=== PATIENT | male | born 1945 | race Caucasian/White ===

== ENCOUNTER → 2016-11-14 | Outpatient (CLI) | payer MEDICARE ==
--- NOTE | 2016-11-14 10:16 | XR ---
EXAMINATION TYPE: XR cervical spine comp DATE OF EXAM: 11/14/2016 9:54 AM TECHNIQUE: Frontal, lateral, oblique, swimmers, and open mouth view of the cervical spine are obtaine d. HISTORY: M54.2 cervicalgia per order. History of neck surgery 20 years ago with neck pain COMPARISON: None FINDINGS: The cervical spine is visualized from C1 thru the mid C7 level, it there is exaggerated cu rvature in the upper cervical spine. No acute fracture is seen. Prevertebral soft tissues is prominen t at C6 level measuring 2.3 cm. The C1-C2 articulation is within normal limits on the open mouth vie w. There is suboptimal evaluation of C7-T1 level despite attempted swimmer's view. There is anterior fus ion plate running from superior C4-C7 vertebral body level. There is ossific fusion at these levels i dentified. There is slight anterior distraction or bending of the plate. The superior portion of plat e and dense along the anterior inferior C3 vertebra with spurring and sclerosis. Moderate to severe d isc space narrowing anteriorly at this C3-C4 disc space level is present. Mid screw appears to be wit hin ossified C5-C6 disc space. There are uncovertebral facet degenerative changes left C2-C3 and righ t C3-C4 level. The oblique images are within normal limits. The overlying soft tissue is unremarkable . IMPRESSION: As above, ossific fusion C4-C7 levels with exaggerated cervical curvature centered at C3- C4 disc space level. There is suspected mass effect on the anterior fusion plate which has abnormal a nterior bowing and is indenting into the anterior inferior C3 vertebra. Other findings as noted above . Correlation with old outside studies advised to further assess.
== END | disposition home or self-care (01) ==
LOC: RADXRMAIN 09:05
PROVIDERS: ATTEND Internal Medicine Geriatric Medicine
DX: M43.8X2 Other specified deforming dorsopathies, cervical region (principal); M43.22 Fusion of spine, cervical region
CPT/HCPCS: 72050

== ENCOUNTER → 2016-11-23 | Outpatient (CLI) | payer MEDICARE ==
[2016-11-23 07:15] LABS: Blood Urea Nitrogen 27 mg/dL (9-20); Non-African American GFR(MDRD) >60 (>60 ml/min/1.73 sqM)
--- NOTE | 2016-11-23 08:13 | MR ---
EXAMINATION TYPE: MR cervical spine wo/w con DATE OF EXAM ORDERED: 11/23/2016 7:41 AM HISTORY: M54.2 cervicalgia. TECHNOLOGIST HISTORY AT TIME OF EXAM: cervicalgia IV CONTRAST: 20 of MultiHance COMPARISON: None. TECHNIQUE: Multiplanar, multiecho imaging of the cervical spine was obtained with and without the in travenous administration of 20 of MultiHance on a 1.5 fern magnet. FINDINGS: Prevertebral soft tissues have a normal appearance. There has been an extensive ACDF and corpectomy with graft placement extending from C4 through C7. Th ere is moderate geometric distortion through this region. There is a reversal of the normal cervical lordosis at the C3 vertebral body is positioned slightly anterior aspect of the inferior endplate is impinging upon the superior aspect of the ACDF and this is eroding the inferior endplate. This hypert rophic spondylosis at this level. There is a normal craniocervical junction. Cord signal is normal. At C2-C3, there is a diffuse disc displacement. There is bilateral intervertebral foraminal narrowing , worse on the left than the right. There is facet arthropathy. The uncovertebral joints are unremark able. At C3-C4, there is disc space loss. There is bilateral intervertebral foraminal narrowing. There is a broad-based disc protrusion impinging upon the thecal sac with cord contact without compression. The re is mild facet arthropathy. The uncovertebral joints are secured. At C4-C5, there is mild, bilateral intervertebral foraminal narrowing. There is no significant compre ssive discopathy. There is facet arthropathy. The uncovertebral joints are obscured. At C5-C6, there is left-sided intervertebral foraminal narrowing. There is no significant compressive discopathy. There is mild facet arthropathy. The uncovertebral joints are obscured. At C6-C7, the intervertebral foramina are reasonably well-maintained. There is no significant herberth sive discopathy. The facets are unremarkable. The uncovertebral joints are obscured. At C7-T1, there is mild, bilateral intervertebral foraminal narrowing. There is a diffuse disc displa cement. There is mild facet arthropathy. The uncovertebral joints show mild degenerative change. IMPRESSION: 1. EXTENSIVE POSTSURGICAL CHANGE. 2. BROAD-BASED DISC PROTRUSION, C3-4 DEFORMING THE THECAL SAC WITH CORD CONTACT AND COMPRESSION. 3. MULTILEVEL INTERVERTEBRAL FORAMINAL NARROWING. 4. THE SUPERIOR PLATE OF THE ACDF IS ERODING INTO THE INFERIOR ENDPLATE OF C3.
== END | disposition home or self-care (01) ==
LOC: RADMRIMAIN 06:17
PROVIDERS: ATTEND Internal Medicine Geriatric Medicine
DX: M99.71 Connective tissue and disc stenosis of intervertebral foramina of cervical region (principal); M50.20 Other cervical disc displacement, unspecified cervical region; Z98.890 Other specified postprocedural states
CPT/HCPCS: 82565; 84520; 72156; A9577

== ENCOUNTER → 2018-02-25 | Day surgery (SDC) | payer MEDICARE ==
[2018-02-21 09:18] VITALS: BMI 28.4
[~2018-02-25] MED LIST: LACTATED RINGERS 1,000 ML IV SCH; PROPOFOL 10 MG/ML 20 ML VIAL IV ONE; SODIUM CHLORIDE 0.9% 1,000 ML IV SCH
[2018-02-25 06:23] VITALS: TEMP 98
[2018-02-25 07:44] VITALS: RESP 16
--- NOTE | 2018-02-25 07:59 | CE ---
CARDIAC ELECTROPHYSIOLOGY REPORT DATE OF SERVICE: 02/25/2018 PROCEDURE: Electrical cardioversion. INDICATION: Persistent atrial fibrillation, unresponsive to pharmacological measures. PROCEDURE NOTE: Under the influence of ultra short-acting intravenous anesthetic, with the attendance of the anesthesiologist, an initial shock of 200 joules was delivered with anterior and posterior patches in a synchronized fashion. Patient did not convert to sinus rhythm, remained in atrial fibrillation. A second shock was then delivered at 250 joules and this was also unsuccessful. Patient remained in atrial fibrillation, hemodynamically stable and neurologically intact. This was a unsuccessful electrical cardioversion. We will pursue rate control and anticoagulation. MMODL / IJN: [id number] /
[2018-02-25 09:09] VITALS: BP 135/81
[2018-02-25 09:29] VITALS: PULSE 56
== END | disposition home or self-care (01) ==
LOC: CATHCVL 05:48
PROVIDERS: ATTEND Internal Medicine Interventional Cardiology
DX: I48.1 Persistent atrial fibrillation (principal); E78.5 Hyperlipidemia, unspecified; I10 Essential (primary) hypertension; M10.9 Gout, unspecified; Z86.73 Personal history of transient ischemic attack (TIA), and cerebral infarction without residual deficits; E78.00 Pure hypercholesterolemia, unspecified; Z87.891 Personal history of nicotine dependence; Z79.82 Long term (current) use of aspirin; Z79.01 Long term (current) use of anticoagulants; Z79.899 Other long term (current) drug therapy
CPT/HCPCS: 92960; 84132; J2704

== ENCOUNTER 2018-04-04 08:45 | Inpatient (IN) | payer MEDICARE ==
[2018-04-04] MEDS ORDERED: SODIUM CHLORIDE 0.9% 1,000 ML IV ONE (09:42)
[2018-04-04] MEDS ORDERED: ALPRAZolam 0.25 MG TAB PO PRN (09:56)
[2018-04-04] MEDS ORDERED: ATORVASTATIN 80 MG TAB PO STA (09:56)
[2018-04-04] MEDS ORDERED: ALPRAZolam 0.5 MG TAB PO PRN (09:56)
[2018-04-04] MEDS ORDERED: ASPIRIN 325 MG TAB PO STA (09:56)
[2018-04-04] MEDS ORDERED: SODIUM CHLORIDE 0.9% 1,000 ML in EMPTY BAG 1 BAG IV ONE (09:56)
[2018-04-04] MEDS ORDERED: NITROGLYCERIN SL TABS 0.4 MG TAB SUBLINGUAL PRN ×2 (09:56→12:21)
[2018-04-04] MEDS ORDERED: 0.45% NACL 1 500ML.BAG with HEPARIN SOD,PORK IN 0.45% NACL 25,000 UNIT IV SCH (10:00)
[2018-04-04] MEDS ORDERED: HEPARIN SOD,PORK IN 0.45% NACL 25,000 UNIT in 0.45% NACL 1 500ML.BAG IV SCH (10:15)
[2018-04-04] MEDS ORDERED: LIDOCAINE 2% SYG (PF) 100 MG/5 ML MISCELLANE ONE (11:43)
[2018-04-04] MEDS ORDERED: VERAPAMIL SYRINGE (5 MG/10 ML) INTRAARTER ONE (11:44)
[2018-04-04] MEDS ORDERED: BIVALIRUDIN BOLUS 250 MG/50 ML IV ONE (11:47)
[2018-04-04] MEDS ORDERED: diphenhydrAMINE 50 MG/ML 1 ML VIAL IVP ONE (11:48)
[2018-04-04] MEDS ORDERED: BIVALIRUDIN 250 MG in SODIUM CHLORIDE 0.9% 40 ML IV ONE (11:48)
[2018-04-04] MEDS ORDERED: MIDAZOLAM 2 MG/2 ML VIAL IV ONE (11:48)
[2018-04-04] MEDS ORDERED: NITROGLYCERIN 1000MCG/10ML SYRINGE INTRACORON ONE (12:07)
[2018-04-04] MEDS ORDERED: IOPAMIDOL-370 100ML BTL INJ ONE (12:07)
[2018-04-04] MEDS ORDERED: CLOPIDOGREL 75 MG TAB PO ONE (12:14)
[2018-04-04] MEDS ORDERED: RX INFO: IV CONTRAST WAS GIVEN 1 EACH MISC MISCELLANE PRN (12:21)
[2018-04-04] MEDS ORDERED: MAG HYDROX/AL HYDROX/SIMETH 30 ML CUP PO PRN (12:21)
[2018-04-04] MEDS ORDERED: ATROPINE SULFATE 0.1 MG/ML 10ML SYRINGE IV PRN (12:21)
[2018-04-04] MEDS ORDERED: ZOLPIDEM 5 MG TAB PO PRN (12:21)
--- NOTE | 2018-04-04 14:19 | PTCA ---
PERCUTANEOUSTRANS CORORONARY ANGIOGRAPHY DATE OF SERVICE: 04/04/2018. PROCEDURE: PTCA and stenting of distal dominant right coronary artery with a drug-eluting stent. PERFORMED BY: Dr. Mirza Lange. Moderate conscious sedation time was 30 minutes. CLINICAL INFORMATION: Mr. Samm Johnson is a 72-year-old gentleman with a known history of recent onset persistent atrial fibrillation, unresponsive to elective cardioversion with ejection fraction in the 45% range, who was being considered for an ablation, but prior to that he was advised coronary angiography. Risks, benefits, options and rationale were explained. Coronary angiography performed earlier today revealed that there was 80% lesion in the distal RCA which was a very dominant vessel without significant disease in the left system. He was transferred from [facility] with a sheath in the right radial artery and brought in for the procedure. PROCEDURE NOTE: The existing 6-Romansh introducer in the right radial artery was used to perform the procedure. I used an ERT 3.5 catheter to cannulate the right coronary artery. Initially, I used a BMW wire, but switched over to a Whisper wire. With this I was able to get the wire all the way distally. Without predilatation, a 2.75 caliber, 12 mm long Xience stent was deployed at 14 atmospheres. Patient did not have any chest pain or EKG changes. Excellent angiographic result was achieved. The sheath was then taken out and a TR band applied as per protocol. Saturation of the fingers of the right hand was about 94%. Patient was given Angiomax bolus and infusion as per protocol and also received 600 mg of Plavix. He will be going home on aspirin and Plavix but not Eliquis and this will be resumed a week later and probably AV is a combination of Xarelto and Plavix for this patient. Results were discussed with the patient and daughter and I expect he will be discharged tomorrow if he remains stable. MMODL / IJN: [id number] /
[2018-04-04 14:21] VITALS: BMI 28.4
--- NOTE | 2018-04-04 14:22 | LTR ---
DATE OF SERVICE: 04/04/2018 RE: Samm Johnson Dear Dr. Sanders; Please find enclosed my detailed PTCA report for the records. This gentleman was transferred from [facility] for PCI, which was performed from the same right radial approach with excellent angiographic result. He should be on a dual antiplatelet therapy without interruption for one year. I may, however, change this to a combination of Xarelto 15 mg and Plavix 75 mg daily, but I will send you a note regarding this after I see him in the office. Thank you for your referral and please call for questions. With kindest regards. Sincerely yours, MD ETHAN LunaL / NICKIN: [id number] /
[2018-04-04] MEDS: SODIUM CHLORIDE 0.9% 1,000 ML IV SCH (16:05)
[2018-04-04] MEDS ORDERED: ATORVASTATIN 80 MG TAB PO SCH (21:00)
[2018-04-04] MEDS: BACLOFEN 10 MG TAB PO SCH (23:56)
[2018-04-05 05:53] LABS: Basophils % (A) 0 %; Eosinophils # (A) 0.1 k/uL (0-0.7); Eosinophils % (A) 2 %; HCT 41.6 % (39.0-53.0); HGB 13.7 gm/dL (13.0-17.5); Lymphocytes # (A) 1.5 k/uL (1.0-4.8); Lymphocytes % (A) 20 %; MCH 32.5 pg (25.0-35.0); MCV 98.6 fL (80.0-100.0); Mean Platelet Volume 7.9; Monocytes # (A) 0.5 k/uL (0-1.0); Monocytes % (A) 7 %; Neutrophils # (A) 5.1 k/uL (1.3-7.7); Neutrophils % (A) 70 %; Platelet Count 166 k/uL (150-450); RBC 4.21 m/uL (4.30-5.90); WBC 7.4 k/uL (3.8-10.6)
[2018-04-05 06:04] LABS: Calcium 9.1 mg/dL (8.4-10.2); Potassium 4.6 mmol/L (3.5-5.1)
[2018-04-05] MEDS: SODIUM CHLORIDE 0.9% 1,000 ML IV SCH (06:42)
[2018-04-05] MEDS: BACLOFEN 10 MG TAB PO SCH (08:02)
[2018-04-05 08:12] VITALS: BP 134/79; PULSE 76; RESP 16; TEMP 98.1
[2018-04-05] MEDS ORDERED: LOSARTAN 50 MG TAB PO SCH (09:00)
[2018-04-05] MEDS ORDERED: SODIUM BICARBONATE TAB 650 MG TAB PO SCH (09:00)
[2018-04-05] MEDS ORDERED: ALLOPURINOL 300 MG TAB PO SCH (09:00)
[2018-04-05] MEDS ORDERED: METOPROLOL TARTRATE 25 MG TAB PO SCH (09:00)
[2018-04-05] MEDS ORDERED: TRIAMTERENE-HCTZ 37.5-25MG 1 EACH CAP PO SCH (09:00)
[2018-04-05] MEDS ORDERED: CLOPIDOGREL 75 MG TAB PO SCH (09:00)
[2018-04-05] MEDS ORDERED: LACTOBACILLUS ACIDOPH & BULGAR 1 EACH PACKET PO SCH (09:00)
[2018-04-05] MEDS ORDERED: ASPIRIN 81 MG PO SCH (09:00)
--- NOTE | 2018-04-05 11:43 | PN ---
PROGRESS NOTE Mr. Johnson 72-year-old male who presented to [facility], underwent cardiac catheterization by Dr. Juan A Lange and was found to have significant stenosis involving the distal right coronary artery and underwent stenting of that vessel. He is doing well this morning. He is denying any symptom of chest pain. He denies any dizziness, palpitation. He denies any nausea. He continues to be at this time on aspirin once a day, Lipitor 80 mg daily, Plavix 75 mg daily, losartan 100 mg daily, metoprolol 25 mg daily, and Dyazide. PHYSICAL EXAMINATION: Blood pressure 134/70 with a heart rate in the 70s. LUNGS: Clear. HEART: Regular rate and rhythm. S1, S2. No S3. No rub. ABDOMEN: Soft, nontender. EXTREMITIES: No edema, right radial pulse intact. LAB DATA: Revealed BUN and creatinine 23 and 1.0. IMPRESSION: 1. Status post stenting of the right coronary artery. 2. Hypertension. 3. Hyperlipidemia. RECOMMENDATION: Patient should be able to be discharged home today and followed with Dr. Juan A Lange as an outpatient. MMODL / IJN: [id number] /
== END 2018-04-05 12:55 | disposition home or self-care (01) | DRG 247 ==
LOC: 6SEL 08:55
PROVIDERS: ADMIT Internal Medicine Interventional Cardiology; ATTEND Internal Medicine Interventional Cardiology
PROC: 027034Z Dilation of Coronary Artery, One Artery with Drug-eluting Intraluminal Device, Percutaneous Approach (ICD-10-PCS; principal; 2018-04-04 11:15)
DX: I25.10 Atherosclerotic heart disease of native coronary artery without angina pectoris (principal); I48.1 Persistent atrial fibrillation; I10 Essential (primary) hypertension; E78.5 Hyperlipidemia, unspecified; Z79.899 Other long term (current) drug therapy; Z87.891 Personal history of nicotine dependence; I42.9 Cardiomyopathy, unspecified; I49.5 Sick sinus syndrome
CPT/HCPCS: 80048; 85025

== ENCOUNTER → 2019-01-31 | Outpatient (CLI) | payer MEDICARE ==
--- NOTE | 2019-01-31 07:19 | XR ---
EXAMINATION TYPE: XR lumbar spine 2 or 3V DATE OF EXAM: 01/31/2019 CLINICAL HISTORY: Chronic low back pain. TECHNIQUE: Frontal and lateral images of the lumbar spine are obtained. COMPARISON: Lumbar spine x-ray from 2011. FINDINGS: There are 5 lumbar type vertebral bodies redemonstrated. The lumbar spine redemonstrates slight levoconvex scoliotic curvature centered at L3 level without evidence of acute fracture or disl ocation. There is some loss of normal lumbar lordosis on lateral images redemonstrated. Vertebral bod y heights remain within normal limits. There is stable mild disc space narrowing L4-L5 and L5-S1 leve ls. There is prominent facet arthropathy in the lower lumbar spine redemonstrated. There is mild disc space narrowing L2-L3 level redemonstrated with now moderate anterior spurring. There is additional prominent spur anteriorly L1-L2 level now identified. The overlying soft tissue appears unremarkable. IMPRESSION: As above.
== END | disposition home or self-care (01) ==
LOC: RADXRMAIN 06:13
PROVIDERS: ATTEND Internal Medicine Geriatric Medicine
DX: M48.07 Spinal stenosis, lumbosacral region (principal); M46.86 Other specified inflammatory spondylopathies, lumbar region; M46.06 Spinal enthesopathy, lumbar region; M40.56 Lordosis, unspecified, lumbar region
CPT/HCPCS: 72100

== ENCOUNTER 2019-07-08 14:12 | Observation (INO) | payer MEDICARE ==
[2019-07-08] MEDS ORDERED: NITROGLYCERIN OINT 1 INCH/GM PACKET TOPICAL STA (14:36)
[2019-07-08] MEDS ORDERED: ASPIRIN 81 MG PO STA (14:36)
--- NOTE | 2019-07-08 14:39 | ED ---
General Adult HPI - General Chief complaint: Chest Pain Stated complaint: Chest pain Time Seen by Provider: 07/08/19 14:15 Source: patient, RN notes reviewed Mode of arrival: ambulatory Limitations: no limitations - History of Present Illness Initial comments: This is a 73-year-old male who presents emergency Department with a past medical history significant for atrial fibrillation and high blood pressure and high cholesterol. Patient states the last 2 days had chest pain and left-sided chest radiates to his jaw back and arm. Patient states he is also noted with exertion is a little bit more short of breath than normal. Patient states he is on eliquis. Patient states currently while lying here he still has chest pain and pain rating to his jaw. Patient denies any diaphoretic episodes. Patient states he is a little bit nauseated. Patient denies any abdominal pain patient denies any vomiting or diarrhea. Patient denies any headache patient denies numbness weakness. Patient denies any lightheadedness or dizziness. Patient denies any recent fever chills or cough - Related Data Home Medications Medication Instructions Recorded Confirmed Acetaminophen [Tylenol Arthritis] 2 tab PO BID 02/21/18 04/04/18 Allopurinol [Zyloprim] 300 mg PO DAILY 02/21/18 04/04/18 Apixaban [Eliquis] 5 mg PO BID 02/21/18 04/04/18 Baclofen [Lioresal] 10 mg PO BID 02/21/18 04/04/18 L.acidoph,Paracasei, B.lactis 1 cap PO DAILY 02/21/18 04/04/18 [Probiotic] Losartan Potassium [Cozaar] 100 mg PO DAILY 02/21/18 04/04/18 Metoprolol Tartrate 25 mg PO DAILY 02/21/18 04/04/18 Sodium Bicarbonate 650 mg PO DAILY 02/21/18 04/04/18 Triamterene-Hctz 37.5-25Mg 1 cap PO DAILY 02/21/18 04/04/18 [Dyazide 37.5-25 Capsule] Previous Rx's Medication Instructions Recorded Aspirin 81 mg PO DAILY #30 chew 04/05/18 Atorvastatin [Lipitor] 80 mg PO HS #30 tab 04/05/18 Clopidogrel [Plavix] 75 mg PO DAILY #30 tab 04/05/18 Nitroglycerin Sl Tabs [Nitrostat] 0.4 mg SUBLINGUAL Q5M PRN #25 tab 04/05/18 Allergies Allergy/AdvReac Type Severity Reaction Status Date / Time No Known Allergies Allergy Verified 07/08/19 14:19 Review of Systems ROS Statement: Those systems with pertinent positive or pertinent negative responses have been documented in the HPI. ROS Other: All systems not noted in ROS Statement are negative. Past Medical History Past Medical History: Atrial Fibrillation, CVA/TIA, Hyperlipidemia, Hypertension, Osteoarthritis (OA) Additional Past Medical History / Comment(s): 04-04-18 c/p. gout, past tia History of Any Multi-Drug Resistant Organisms: None Reported Past Surgical History: Heart Catheterization, Heart Catheterization With Stent Additional Past Surgical History / Comment(s): 04-04-18 heart cath w/ stent to rca,cervical fusion, rt carotid surgery, cardioversion 02-25-18, upper front dental implants Past Anesthesia/Blood Transfusion Reactions: No Reported Reaction Additional Past Anesthesia/Blood Transfusion Reaction / Comment(s): clausterphobia. never had a blood transfusion Past Psychological History: No Psychological Hx Reported Smoking Status: Former smoker Past Alcohol Use History: Occasional Past Drug Use History: None Reported - Past Family History Mother Family Medical History: Cancer Additional Family Medical History / Comment(s): breast with metastasis Brother(s) Family Medical History: Cancer General Exam - General Exam Comments Initial Comments: GENERAL: Patient is well-developed and well-nourished. Patient is nontoxic and well- hydrated and is in mild distress. ENT: Neck is soft and supple. No significant lymphadenopathy is noted. Oropharynx is clear. Moist mucous membranes. Neck has full range of motion without eliciting any pain. EYES: The sclera were anicteric and conjunctiva were pink and moist. Extraocular movements were intact and pupils were equal round and reactive to light. Eyelids were unremarkable. PULMONARY: Unlabored respirations. Good breath sounds bilaterally. No audible rales rhonchi or wheezing was noted. CARDIOVASCULAR: There is a regular rate and rhythm without any murmurs gallops or rubs. ABDOMEN: Soft and nontender with normal bowel sounds. No palpable organomegaly was noted. There is no palpable pulsatile mass. SKIN: Skin is clear with no lesions or rashes and otherwise unremarkable. NEUROLOGIC: Patient is alert and oriented x3. Cranial nerves II through XII are grossly intact. Motor and sensory are also intact. Normal speech, volume and content. Symmetrical smile. MUSCULOSKELETAL: Normal extremities with adequate strength and full range of motion. No lower extremity swelling or edema. No calf tenderness. LYMPHATICS: No significant lymphadenopathy is noted PSYCHIATRIC: Normal psychiatric evaluation. Limitations: no limitations Course Vital Signs 07/08/19 14:15 Temperature 97.9 F Pulse Rate 69 Respiratory 20 Rate Blood Pressure 163/88 O2 Sat by Pulse 97 Oximetry Medical Decision Making - Medical Decision Making EKG shows atrial flutter fibrillation a 73 bpm QRS 142 QT intervals 410 QTC is 460. Patient has a left bundle branch block. This was seen on old EKG. Patient's chest x-ray showed no acute abnormalities. Patient was diagnosed unstable angina/started the patient heparin. I spoke with his primary medical care doctor admitted the patient wrote a minute or so and consult to cardiology. I continued heparin Nitropaste on the floor. - Lab Data Result diagrams: 07/08/19 15:37 07/08/19 15:37 Lab Results 07/08/19 07/08/19 07/08/19 Range/Units 15:37 15:37 15:37 WBC 6.5 (3.8-10.6) k/uL RBC 4.03 L (4.30-5.90) m/uL Hgb 13.6 (13.0-17.5) gm/dL Hct 39.8 (39.0-53.0) % MCV 98.9 (80.0-100.0) fL MCH 33.7 (25.0-35.0) pg MCHC 34.1 (31.0-37.0) g/dL RDW 13.0 (11.5-15.5) % Plt Count 175 (150-450) k/uL Neutrophils % 62 % Lymphocytes % 28 % Monocytes % 6 % Eosinophils % 1 % Basophils % 1 % Neutrophils # 4.1 (1.3-7.7) k/uL Lymphocytes # 1.8 (1.0-4.8) k/uL Monocytes # 0.4 (0-1.0) k/uL Eosinophils # 0.1 (0-0.7) k/uL Basophils # 0.0 (0-0.2) k/uL PT 11.2 (9.0-12.0) sec INR 1.1 (<1.2) APTT 26.4 (22.0-30.0) sec Sodium 140 (137-145) mmol/L Potassium 4.1 (3.5-5.1) mmol/L Chloride 106 (98-107) mmol/L Carbon Dioxide 29 (22-30) mmol/L Anion Gap 5 mmol/L BUN 24 H (9-20) mg/dL Creatinine 0.95 (0.66-1.25) mg/dL Est GFR (CKD-EPI)AfAm >90 (>60 ml/min/1.73 sqM) Est GFR (CKD-EPI)NonAf 80 (>60 ml/min/1.73 sqM) Glucose 134 H (74-99) mg/dL Calcium 9.0 (8.4-10.2) mg/dL Magnesium 2.0 (1.6-2.3) mg/dL Total Bilirubin 1.0 (0.2-1.3) mg/dL AST 28 (17-59) U/L ALT 24 (21-72) U/L Alkaline Phosphatase 69 (38-126) U/L Troponin I (0.000-0.034) ng/mL Total Protein 6.8 (6.3-8.2) g/dL Albumin 4.0 (3.5-5.0) g/dL 07/08/19 Range/Units 15:37 WBC (3.8-10.6) k/uL RBC (4.30-5.90) m/uL Hgb (13.0-17.5) gm/dL Hct (39.0-53.0) % MCV (80.0-100.0) fL MCH (25.0-35.0) pg MCHC (31.0-37.0) g/dL RDW (11.5-15.5) % Plt Count (150-450) k/uL Neutrophils % % Lymphocytes % % Monocytes % % Eosinophils % % Basophils % % Neutrophils # (1.3-7.7) k/uL Lymphocytes # (1.0-4.8) k/uL Monocytes # (0-1.0) k/uL Eosinophils # (0-0.7) k/uL Basophils # (0-0.2) k/uL PT (9.0-12.0) sec INR (<1.2) APTT (22.0-30.0) sec Sodium (137-145) mmol/L Potassium (3.5-5.1) mmol/L Chloride (98-107) mmol/L Carbon Dioxide (22-30) mmol/L Anion Gap mmol/L BUN (9-20) mg/dL Creatinine (0.66-1.25) mg/dL Est GFR (CKD-EPI)AfAm (>60 ml/min/1.73 sqM) Est GFR (CKD-EPI)NonAf (>60 ml/min/1.73 sqM) Glucose (74-99) mg/dL Calcium (8.4-10.2) mg/dL Magnesium (1.6-2.3) mg/dL Total Bilirubin (0.2-1.3) mg/dL AST (17-59) U/L ALT (21-72) U/L Alkaline Phosphatase (38-126) U/L Troponin I <0.012 (0.000-0.034) ng/mL Total Protein (6.3-8.2) g/dL Albumin (3.5-5.0) g/dL Critical Care Time Critical Care Time: Yes Total Critical Care Time: 35 Disposition Clinical Impression: Unstable angina pectoris Disposition: ADMITTED IP TO THIS HOSP Referrals: Joe Sanders MD [Primary Care Provider] - 1-2 days Time of Disposition: 17:02
[2019-07-08 15:54] LABS: Basophils % (A) 1 %; Eosinophils # (A) 0.1 k/uL (0-0.7); Eosinophils % (A) 1 %; HCT 39.8 % (39.0-53.0); HGB 13.6 gm/dL (13.0-17.5); Lymphocytes # (A) 1.8 k/uL (1.0-4.8); Lymphocytes % (A) 28 %; MCH 33.7 pg (25.0-35.0); MCHC 34.1 g/dL (31.0-37.0); MCV 98.9 fL (80.0-100.0); Mean Platelet Volume 7.3; Monocytes # (A) 0.4 k/uL (0-1.0); Monocytes % (A) 6 %; Neutrophils # (A) 4.1 k/uL (1.3-7.7); Neutrophils % (A) 62 %; Platelet Count 175 k/uL (150-450); RBC 4.03 m/uL (4.30-5.90); WBC 6.5 k/uL (3.8-10.6)
--- NOTE | 2019-07-08 15:59 | XR ---
EXAMINATION TYPE: XR chest 2V DATE OF EXAM: 07/08/2019 COMPARISON: NONE HISTORY: History of hypertension with chest pain. TECHNIQUE: Frontal and lateral views of the chest are obtained. FINDINGS: Overlying EKG leads. There is no focal air space opacity, pleural effusion, or pneumothorax seen. The cardiac silhouette size is within normal limits. Fusion plate lower cervical spine noted. IMPRESSION: No acute cardiopulmonary process.
[2019-07-08 16:07] LABS: ALT 24 U/L (21-72); AST 28 U/L (17-59); African American GFR (CKD) >90 (>60 ml/min/1.73 sqM); Alkaline Phosphatase 69 U/L (38-126); Anion Gap 5 mmol/L; Blood Urea Nitrogen 24 mg/dL (9-20); Carbon Dioxide 29 mmol/L (22-30); Chloride 106 mmol/L (98-107); Glucose 134 mg/dL (74-99); Non-African American GFR(CKD) 80 (>60 ml/min/1.73 sqM); Potassium 4.1 mmol/L (3.5-5.1); Sodium 140 mmol/L (137-145); Total Protein 6.8 g/dL (6.3-8.2)
[2019-07-08 16:29] LABS: INR 1.1 (<1.2); Partial Thromboplastin Time 26.4 sec (22.0-30.0); Prothrombin Time 11.2 sec (9.0-12.0)
[2019-07-08] MEDS ORDERED: NITROGLYCERIN SL TABS 0.4 MG TAB SUBLINGUAL PRN (17:03)
[2019-07-08] MEDS ORDERED: HEPARIN SODIUM,PORCINE 5,000 UNIT/ML 1 ML VIAL IV ONE (17:06)
[2019-07-08] MEDS ORDERED: HEPARIN SOD,PORK IN 0.45% NACL 25,000 UNIT in 0.45% NACL 1 250ML.BAG IV SCH (17:15)
[2019-07-08 21:29] VITALS: RESP 18
[2019-07-08 21:41] VITALS: BMI 29.7
[2019-07-08] MEDS: NITROGLYCERIN OINT 1 INCH/GM PACKET TOPICAL SCH (21:59)
[2019-07-09] MEDS: NITROGLYCERIN OINT 1 INCH/GM PACKET TOPICAL SCH ×2 (00:24→03:25)
[2019-07-09] MEDS ORDERED: ACETAMINOPHEN TAB 325 MG TAB PO PRN (03:24)
[2019-07-09 04:19] LABS: Cholesterol 111 mg/dL (<200); HDL Cholesterol 38 mg/dL (40-60); LDL Cholesterol,Calculated 48 mg/dL (0-99); Triglycerides 123 mg/dL (<150)
[2019-07-09 07:38] VITALS: TEMP 97.5
[2019-07-09] MEDS ORDERED: ASPIRIN 325 MG TAB PO SCH (09:00)
[2019-07-09] MEDS ORDERED: METOPROLOL TARTRATE 25 MG TAB PO SCH (09:00)
[2019-07-09] MEDS ORDERED: ASPIRIN 81 MG PO SCH (09:00)
[2019-07-09] MEDS ORDERED: hydrALAZINE HCL 25 MG TAB PO SCH (09:00)
--- NOTE | 2019-07-09 10:18 | P.CRDCN ---
History of Present Illness History of present illness: This is a pleasant 73-year-old male past medical history significant for chronic persistent atrial fibrillation, nonischemic cardiomyopathy secondary to atrial fibrillation, coronary artery disease status post stent placement to the RCA, TIA, hypertension, dyslipidemia, cervical fusion and former nicotine dependence. He follows in the office with Dr. Lange. We have been asked to see him in consultation secondary to chest discomfort. He states he woke up Sunday morning with a sharp pain in the left precordial region that radiated to the left arm, left neck and left scapular region. His symptoms were persistent in nature not exacerbated by activity however did have periods of worsening associated with movement of his arm or torso. He is seen and examined resting comfortably in bed in no acute distress. He has no further chest discomfort however his left arm still feels achy. There is a reproducible discomfort in the left precordial region and palpation. He denies associated shortness of breath, dizziness, nausea, vomiting or diaphoresis. EKG reveals atrial fibrillation with left bundle branch block, left bundle branch block is chronic. Chest x-ray is negative for an acute cardiopulmonary process. Laboratory data reviewed, cardiac enzymes negative 3, WBC 6.5, hemoglobin 13.6, platelets 175, sodium 140, potassium 4.1, creatinine 0.95, LDL 48, HDL 38 and magnesium 2.0. Current daily cardiac medications include Eliquis 5 mg twice a day, atorvastatin 40 mg daily, Plavix 75 mg daily, losartan 100 mg daily and Lopressor 25 mg twice a day. He underwent cardiac catheterization in April 2018 revealing disease of the RCA s/p PCI. Most recent echocardiogram obtained in the office 05/2019 revealed impaired LV systolic function with ejection fraction 35-40% with global hypokinesia and mild mitral regurgitation. At the time of my exam: CONSTITUTIONAL: Denies fever. Denies chills. EYES: Denies blurred vision. Denies vision changes. Denies eye pain. EARS, NOSE, MOUTH & THROAT: Denies headache. Denies sore throat. Denies ear pain. CARDIOVASCULAR: Denies chest pain. Denies shortness of breath. Denies orthopnea. Denies PND. Denies palpitations. RESPIRATORY: Denies cough. GASTROINTESTINAL: Denies abdominal pain. Denies diarrhea. Denies constipation. Denies nausea. Denies vomiting. MUSCULOSKELETAL: Complains of discomfort on the left arm. INTEGUMENTARY: Denies pruitis. Denies rash. NEUROLOGIC: Denies numbness. Denies tingling. Denies weakness. PSYCHIATRIC: Denies anxiety. Denies depression. ENDOCRINE: Denies fatigue. Denies weight change. Denies polydipsia. Denies polyurina. GENITOURINARY: Denies burning, hematuria or urgency with micturation. HEMATOLOGIC: Denies history of anemia. Denies bleeding. Blood pressure 162/95 heart rate 51 afebrile maintaining oxygen saturation on room air GENERAL: This is a 73-year-old male in no apparent distress at the time of my examination. HEENT: Head is atraumatic, normocephalic. Pupils are equal, round. Sclerae anicteric. Conjunctivae are clear. Mucous membranes of the mouth are moist. Neck is supple. There is no jugular venous distention. No carotid bruit is heard. LUNGS: Clear to auscultation no wheezes, rales or rhonchi. Mild left precordial region chest wall tenderness is noted on palpation. No pain or discomfort with deep breathing. HEART: Regular rate and rhythm without murmurs, rubs or gallops. S1 and S2 heard. ABDOMEN: Soft, nontender. Bowel sounds are heard. No organomegaly noted. EXTREMITIES: No evidence of peripheral edema and no calf tenderness noted. VASCULAR: Radial and dorsalis pedis pulses palpated, no evidence of clubbing. NEUROLOGIC: Patient is awake, alert and oriented x3. ASSESSMENT Chest pain, atypical for angina. Musculoskeletal in nature. An acute coronary event has been ruled out. Chronic persistent atrial fibrillation on long-term anticoagulation resistant to cardioversion Coronary artery disease status post angioplasty to the RCA April 2018 Non-ischemic cardiomyopathy, EF 35-40% with global hypokinesia Chronic systolic heart failure, currently euvolemic Cervical fusion Hypertension History of TIA Peripheral vascular disease status post right carotid endarterectomy Left bundle branch block PLAN An acute coronary event has been ruled out. Pain is atypical for angina with musculoskeletal features. Likely secondary to musculoskeletal strain. Check an x-ray of the cervical spine. Initiate on hydralazine 25 mg twice a day for better blood pressure control. Resume Eliquis, Plavix, losartan, atorvastatin and Lopressor as previously ordered. Stable from a cardiac perspective. Follow up in the office with Dr. Lange in 2 weeks. Thank you kindly for this consultation. Nurse Practitioner note has been reviewed, I agree with a documented findings and plan of care. Patient was seen and examined. Past Medical History Past Medical History: Atrial Fibrillation, CVA/TIA, Hyperlipidemia, Hyper tension, Osteoarthritis (OA) Additional Past Medical History / Comment(s): 04-04-18 c/p. gout, past tia History of Any Multi-Drug Resistant Organisms: None Reported Past Surgical History: Heart Catheterization, Heart Catheterization With Stent Additional Past Surgical History / Comment(s): 04-04-18 heart cath w/ stent to rca,cervical fusion, rt carotid surgery, cardioversion 02-25-18, upper front den teodora implants Past Anesthesia/Blood Transfusion Reactions: No Reported Reaction Additional Past Anesthesia/Blood Transfusion Reaction / Comment(s): cla usterphobia. never had a blood transfusion Date of Last Stent Placement:: 2017 Smoking Status: Former smoker - Past Family History Mother Family Medical History: Cancer Additional Family Medical History / Comment(s): breast with metastasis Brother(s) Family Medical History: Cancer Medications and Allergies Home Medications Medication Instructions Recorded Confirmed Type Acetaminophen [Tylenol Arthritis] 1,300 mg PO BID@0700,1900 02/21/18 07/08/19 History Allopurinol [Zyloprim] 300 mg PO DAILY@0600 02/21/18 07/08/19 History Apixaban [Eliquis] 5 mg PO BID@0700,1900 02/21/18 07/08/19 History Baclofen [Lioresal] 10 mg PO BID@0700,1900 02/21/18 07/08/19 History L.acidoph,Paracasei, B.lactis 1 cap PO DAILY@0600 02/21/18 07/08/19 History [Probiotic] Losartan Potassium [Cozaar] 100 mg PO DAILY@0600 02/21/18 07/08/19 History Metoprolol Tartrate 25 mg PO BID 02/21/18 07/08/19 History Nitroglycerin Sl Tabs [Nitrostat] 0.4 mg SUBLINGUAL Q5M PRN #25 tab 04/05/1801/19 Rx Atorvastatin [Lipitor] 40 mg PO HS 07/08/19 07/08/19 History Buprenorphine [Butrans 5 MCG/HR] 1 patch TRANSDERM WE 07/08/19 07/08/19 History Clopidogrel [Plavix] 75 mg PO DAILY@0700 07/08/19 07/08/19 History Loratadine [Claritin] 10 mg PO DAILY@0700 07/08/19 07/08/19 History Sodium Bicarbonate Tab 650 mg PO BID@0700,1900 07/08/19 07/08/19 History Allergies Allergy/AdvReac Type Severity Reaction Status Date / Time No Known Allergies Allergy Verified 07/08/19 21:26 Physical Exam Vitals: Vital Signs Temp Pulse Pulse Resp BP BP Pulse Ox 07/09/19 07:20 97.5 F L 51 L 18 162/95 98 07/09/19 04:00 97.8 F 58 L 18 147/87 95 07/09/19 00:00 97.4 F L 42 L 18 125/69 96 07/08/19 20:55 98.2 F 46 L 18 173/93 98 07/08/19 20:00 18 07/08/19 19:30 98.1 F 63 20 168/88 99 07/08/19 18:32 56 L 11 L 144/99 99 07/08/19 18:30 56 L 11 L 144/99 99 07/08/19 18:00 154/99 98 07/08/19 17:30 158/102 99 07/08/19 17:00 62 11 L 158/89 100 07/08/19 16:30 61 9 L 144/76 98 07/08/19 16:00 57 L 20 140/83 07/08/19 15:30 68 16 145/90 96 07/08/19 15:28 53 L 20 96 07/08/19 14:15 97.9 F 69 20 163/88 97 Intake and Output 07/08/19 07/09/19 07/09/19 22:59 06:59 14:59 Other: # Voids 1 1 Results 07/08/19 15:37 07/08/19 15:37 Cardiac Enzymes 07/08/19 07/08/19 07/08/19 Range/Units 15:37 15:37 21:02 AST 28 (17-59) U/L Troponin I <0.012 <0.012 (0.000-0.034) ng/mL 07/09/19 Range/Units 03:39 AST (17-59) U/L Troponin I 0.013 (0.000-0.034) ng/mL Coagulation 07/08/19 Range/Units 15:37 PT 11.2 (9.0-12.0) sec APTT 26.4 (22.0-30.0) sec Lipids 07/09/19 Range/Units 03:42 Triglycerides 123 (<150) mg/dL Cholesterol 111 (<200) mg/dL HDL Cholesterol 38 L (40-60) mg/dL CBC 07/08/19 Range/Units 15:37 WBC 6.5 (3.8-10.6) k/uL RBC 4.03 L (4.30-5.90) m/uL Hgb 13.6 (13.0-17.5) gm/dL Hct 39.8 (39.0-53.0) % Plt Count 175 (150-450) k/uL Comprehensive Metabolic Panel 07/08/19 Range/Units 15:37 Sodium 140 (137-145) mmol/L Potassium 4.1 (3.5-5.1) mmol/L Chloride 106 (98-107) mmol/L Carbon Dioxide 29 (22-30) mmol/L BUN 24 H (9-20) mg/dL Creatinine 0.95 (0.66-1.25) mg/dL Glucose 134 H (74-99) mg/dL Calcium 9.0 (8.4-10.2) mg/dL AST 28 (17-59) U/L ALT 24 (21-72) U/L Alkaline Phosphatase 69 (38-126) U/L Total Protein 6.8 (6.3-8.2) g/dL Albumin 4.0 (3.5-5.0) g/dL Current Medications Generic Name Dose Route Start Last Admin Trade Name Freq PRN Reason Stop Dose Admin Acetaminophen 650 mg 07/09/19 03:24 07/09/19 03:30 Tylenol Tab PO 650 mg Q4HR PRN Administration Fever and/ or Pain Aspirin 325 mg 07/09/19 09:00 Aspirin PO DAILY RANDY Nitroglycerin 0.4 mg 07/08/19 17:03 Nitrostat SUBLINGUAL Q5M PRN Chest Pain Nitroglycerin 1 inch 07/08/19 18:00 07/09/19 03:25 Nitro-Bid Oint TOPICAL Not Given Q6HR RANDY Intake and Output 07/08/19 07/09/19 07/09/19 22:59 06:59 14:59 Other: # Voids 1 1 07/08/19 15:37 07/08/19 15:37
--- NOTE | 2019-07-09 10:53 | XR ---
EXAMINATION TYPE: XR cervical spine comp DATE OF EXAM: 07/09/2019 TECHNIQUE: Frontal, lateral, oblique, swimmers, and open mouth view of the cervical spine are obtaine d. HISTORY: Neck pain status post anterior cervical fusion. COMPARISON: 11/14/2018 FINDINGS: There is redemonstration of anterior cervical fusion device spanning the C4-C7 vertebral le vels. Osseous fusion is seen on fused vertebral bodies and there remains minimal anterior distraction of the cervical fusion plate, unchanged from 2017. The C3 vertebral body has an anterior osteophyte standing over the fusion plate with disc space narrowing at this level. Degenerative changes C2-C3 an d C3-C4 are noted. Reversal of the usual cervical lordosis is seen as there is a cervical kyphosis. P revertebral soft tissues are unchanged. Again there is suboptimal visualization of C7. Oblique images demonstrate moderate to severe neural foraminal narrowing on the left at C3 and C3-C4 as well as mod erate on the right at C2-C3 and C3-C4. There is also neural foraminal narrowing on the right at C6-C7 . IMPRESSION: 1. Exam is similar to the prior 2017 with surgical fusion of the C4-C7 vertebral bodies and osseous f usion. There is reversal of the usual cervical lordosis as there is a cervical kyphosis seen. 2. Upper cervical spine degenerative disc disease is similar in degree with bilateral neural foramina l narrowing at C2-C3 and C3-C4 and neural foraminal narrowing also seen on the right at C6-C7 on the oblique images.
[2019-07-09 11:54] VITALS: BP 144/71; PULSE 62
--- NOTE | 2019-07-09 14:15 | P.HPIM ---
History of Present Illness H&P Date: 07/08/19 Chief Complaint: Chest pain atypical angina, shortness of breath, A. fib, CAD, severe and ch 73-year-old male one of my office patient who seen cardiology regular basis has not have history of A. fib, nonischemic cardiopathy and chronic area disease post stent placement of the RCA last year who is also known to have chronic lower back pain post cervical spine fusion history of hypertension and hyperlipidemia who had mild BPH and chronic gout whose follow with Dr. HERNANDEZ ready a regular basis. Patient developed to have significant chest pain sharp in origin in the midsternal area in the left arm generate in the neck down to the scapula to the front and to the side of his arm has been happening on and off with exertion without exertion sometimes aggravated by leaning on the side. With his symptoms become happening more and more patient become more anxious a bout it developed to have significant shortness of breath with it. On 07/08/2019 developed to have worsening symptom associated with significant shortness of breath when he talked is about the decided to call 911. EMS end up coming to see him and was giving nitro and transferred to the emergency department at [facility]. A. fib was found in his EKG with left bundle-branch block with no change from before troponin was negative for the time with no change in his lab value. His symptoms by then are much better review his last cardiac event with cardiology his catheter from April 2018 with RCA blockage post PCI has done well his last echo from May 2019 showed mild impairment left ventricular systolic function with ejection fraction around 55% with global hypokinesia. Blood pressure has been going higher and patient is complaining of worsening neck pain as well. With the above symptom with a strong history decided to admit patient to the hospital have cardiology seen him and decide on any reason for intervention or stress test. Review of Systems CONSTITUTIONAL: Well-developed no acute respiratory distress. EYES: No icterus sclerae, no conjunctivitis. EARS, NOSE, MOUTH, THROAT, and FACE: No sore throat, lymphadenopathy, carotid bruits or deformity. RESPIRATORY: Mild shortness of breath no cough wheezes. CARDIOVASCULAR: Positive chest pain no Palpitation, no PND, no Orthopnea, mild worsening symptom with exertion. GASTROINTESTINAL: No Abd pain, Nausea or vomiting, no Diarrhea or constipation, No GI Bleed, no distention or masses. GENITOURINARY: Negative for Hematuria or UTI, no kidney stones. INTEGUMENT/BREAST: Significant pain and discomfort in the neck and shoulder area in the left side. HEMATOLOGIC/LYMPHATIC: Negative for bleed or purpura. MUSCULOSKELTAL: Negative for Myalgia or arthralgia. NEURLOGICAL: No LOC, Sz or syncope, blurred vision dizziness or abnormality.. BEHAVIORAL/PSYCH: Negative. ENDOCRINE: Negative. Past Medical History Past Medical History: Atrial Fibrillation, CVA/TIA, Hyperlipidemia, Hypertension, Osteoarthritis (OA) Additional Past Medical History / Comment(s): 04-04-18 c/p. gout, past tia History of Any Multi-Drug Resistant Organisms: None Reported Past Surgical History: Heart Catheterization, Heart Catheterization With Stent Additional Past Surgical History / Comment(s): 04-04-18 heart cath w/ stent to rca,cervical fusion, rt carotid surgery, cardioversion 02-25-18, upper front dental implants Past Anesthesia/Blood Transfusion Reactions: No Reported Reaction Additional Past Anesthesia/Blood Transfusion Reaction / Comment(s): clausterphobia. never had a blood transfusion Date of Last Stent Placement:: 2017 Smoking Status: Former smoker - Past Family History Mother Family Medical History: Cancer Additional Family Medical History / Comment(s): breast with metastasis Brother(s) Family Medical History: Cancer Medications and Allergies Home Medications Medication Instructions Recorded Confirmed Type Acetaminophen [Tylenol Arthritis] 1,300 mg PO BID@0700,1900 02/21/18 07/08/19 Hi story Allopurinol [Zyloprim] 300 mg PO DAILY@59902/21/18 07/08/19 History Apixaban [Eliquis] 5 mg PO BID@0700,189902/21/18 07/08/19 History Baclofen [Lioresal] 10 mg PO BID@0700,0 02/21/18 07/08/19 History L.acidoph,Paracasei, B.lactis 1 cap PO DAILY@59902/21/18 07/08/19 History [Probiotic] Losartan Potassium [Cozaar] 100 mg PO DAILY@0600 02/21/18 07/08/19 History Metoprolol Tartrate 25 mg PO BID 02/21/18 07/08/19 History Nitroglycerin Sl Tabs [Nitrostat] 0.4 mg SUBLINGUAL Q5M PRN #25 tab 04/05/18 07/08/19 Rx Atorvastatin [Lipitor] 40 mg PO HS 07/08/19 07/08/19 History Buprenorphine [Butrans 5 MCG/HR] 1 patch TRANSDERM WE 07/08/19 07/08/19 History Clopidogrel [Plavix] 75 mg PO DAILY@0700 07/08/19 07/08/19 History Loratadine [Claritin] 10 mg PO DAILY@0700 07/08/19 07/08/19 History Sodium Bicarbonate Tab 650 mg PO BID@0700,1900 07/08/19 07/08/19 History Allergies Allergy/AdvReac Type Severity Reaction Status Date / Time No Known Allergies Allergy Verified 07/08/19 21:26 Physical Exam Vitals: Vital Signs Temp Pulse Pulse Resp BP BP Pulse Ox 07/08/19 20:55 98.2 F 46 L 18 173/93 98 07/08/19 19:30 98.1 F 63 20 168/88 99 07/08/19 18:32 56 L 11 L 144/99 99 07/08/19 18:30 56 L 11 L 144/99 99 07/08/19 18:00 154/99 98 07/08/19 17:30 158/102 99 07/08/19 17:00 62 11 L 158/89 100 07/08/19 16:30 61 9 L 144/76 98 07/08/19 16:00 57 L 20 140/83 07/08/19 15:30 68 16 145/90 96 07/08/19 15:28 53 L 20 96 07/08/19 14:15 97.9 F 69 20 163/88 97 Intake and Output 07/08/19 07/08/19 07/08/19 06:59 14:59 22:59 Other: # Voids 1 Weight 113.852 kg General Appearance: Alert, cooperative, no distress, appears stated age. Neck HEENT: His neck is very stiff and required the discomfort in the upper and lower part of the cervical spine area with scar tissue from hardware surgery from the cervical spine second to the sixth Lungs: Clear to auscultation without crackles or wheezes no rhonchi, no deformity. Chest Wall: Decrease expansion with deep inspiration slight tenderness in the costochondral area. Heart: Regular rate and rhythm, S1, S2 normal, no murmur, rub or gallop. Back: Significant pain and discomfort in the neck and the thoracic spine area. Abdomen: Soft, non-tender, bowel sounds active all four quadrants, no masses, no organomegaly. Extremities: Extremities normal, atraumatic, no cyanosis or edema. Pulses: 2+ and symmetric. Skin: Skin color, texture, tugor normal, no rashes or lesions. Neurologic: Alert oriented x3 cranial nerves II through XII intact, no motor deficit, no abnormal balance or gait. Results CBC & Chem 7: 07/08/19 15:37 07/08/19 15:37 Labs: Abnormal Lab Results - Last 24 Hours (Table) 07/08/19 07/08/19 Range/Units 15:37 15:37 RBC 4.03 L (4.30-5.90) m/uL BUN 24 H (9-20) mg/dL Glucose 134 H (74-99) mg/dL Thrombosis Risk Factor Assmnt - DVT/VTE Prophylaxis DVT/VTE Prophylaxis: Pharmacologic Prophylaxis ordered, Mechanical Prophylaxis ordered - Choose All That Apply Each Risk Factor Represents 2 Points: Age 61-74 years Thrombosis Risk Factor Assessment Total Risk Factor Score: 2 Thrombosis Risk Factor Assessment Level: Low Risk Assessment and Plan Plan: 1 chest pain and angina: With strong history of CAD post angioplasty and stent placement patient be hospitalized CK with troponin 3 be done, consult cardiology, continue current management for his cardiopathy and try to control his blood pressure later better at this point. If decided by cardiology might require to go for heart cath or stress test. Whether or not to repeat the echo specially from the recent one in May is to be determined. 2 significant coronary artery disease: Post angioplasty and stent placement from April 2018 seeing cardiology regular basis. 3 nonischemic cardiomyopathy with low ejection fraction of 35-40 percentile with global hypo-kinesia patient is on medical management to continue ARB, beta maribel, nitrates and diuretics. 4 noncontrolled hypertension: Will add hydralazine 25 mg twice a day for now. 5 severe neck pain: Patient had cervical fusion continued to suffer from significant pain and discomfort x-ray of the neck was requested. 6 hyperlipidemia: Continue patient on atorvastatin lipid panel been watch as an outpatient. 7 BPH: With no urinary obstruction continue medical management. 8 history of TIA: With no permanent damage. 9 A. fib with RVR: Pulse rate is well-controlled currently patient remain on anticoagulation without question still on Lopressor. 10 GI prophylaxis: Continue Pepcid 20 mg daily. 11 DVT prophylaxis: Still on anticoagulation. CODE STATUS: Full code. Admit patient to observation for 1-2 nights.
--- NOTE | 2019-07-09 14:20 | P.DS ---
Providers Date of admission: 07/08/19 17:03 Attending physician: Joe Sanders Consults: 07/08/19 17:03 Consult Physician Urgent Consulting Provider: [facility] Consult Reason/Comments: Unstable angina Do you want consulting provider notified?: Yes Primary care physician: Joe Sanders [facility] Course: Chief Complaint: Chest pain atypical angina, shortness of breath, A. fib, CAD, severe and ch 73-year-old male one of my office patient who seen cardiology regular basis has not have history of A. fib, nonischemic cardiopathy and chronic area disease post stent placement of the RCA last year who is also known to have chronic lower back pain post cervical spine fusion history of hypertension and hyperlipidemia who had mild BPH and chronic gout whose follow with Dr. HERNANDEZ ready a regular basis. Patient developed to have significant chest pain sharp in origin in the midsternal area in the left arm generate in the neck down to the scapula to the front and to the side of his arm has been happening on and off with exertion without exertion sometimes aggravated by leaning on the side. With his symptoms become happening more and more patient become more anxious about it developed to have significant shortness of breath with it. On 07/08/2019 developed to have worsening symptom associated with significant shortness of breath when he talked is about the decided to call 911. EMS end up coming to see him and was giving nitro and transferred to the emergency department at [facility]. A. fib was found in his EKG with left bundle-branch block with no change from before troponin was negative for the time with no change in his lab value. His symptoms by then are much better review his last cardiac event with cardiology his catheter from April 2018 with RCA blockage post PCI has done well his last echo from May 2019 showed mild impairment left ventricular systolic function with ejection fraction around 55% with global hypokinesia. Blood pressure has been going higher and patient is complaining of worsening neck pain as well. With the above symptom with a strong history decided to admit patient to the hospital have cardiology seen him and decide on any reason for intervention or stress test. Review of Systems CONSTITUTIONAL: Well-developed no acute respiratory distress. EYES: No icterus sclerae, no conjunctivitis. EARS, NOSE, MOUTH, THROAT, and FACE: No sore throat, lymphadenopathy, carotid bruits or deformity. RESPIRATORY: Mild shortness of breath no cough wheezes. CARDIOVASCULAR: Positive chest pain no Palpitation, no PND, no Orthopnea, mild worsening symptom with exertion. GASTROINTESTINAL: No Abd pain, Nausea or vomiting, no Diarrhea or constipation, No GI Bleed, no distention or masses. GENITOURINARY: Negative for Hematuria or UTI, no kidney stones. INTEGUMENT/BREAST: Significant pain and discomfort in the neck and shoulder area in the left side. HEMATOLOGIC/LYMPHATIC: Negative for bleed or purpura. MUSCULOSKELTAL: Negative for Myalgia or arthralgia. NEURLOGICAL: No LOC, Sz or syncope, blurred vision dizziness or abnormality.. BEHAVIORAL/PSYCH: Negative. ENDOCRINE: Negative. Physical Exam General Appearance: Alert, cooperative, no distress, appears stated age. Neck HEENT: His neck is very stiff and required the discomfort in the upper and lower part of the cervical spine area with scar tissue from hardware surgery from the cervical spine second to the sixth Lungs: Clear to auscultation without crackles or wheezes no rhonchi, no deformity. Chest Wall: Decrease expansion with deep inspiration slight tenderness in the costochondral area. Heart: Regular rate and rhythm, S1, S2 normal, no murmur, rub or gallop. Back: Significant pain and discomfort in the neck and the thoracic spine area. Abdomen: Soft, non-tender, bowel sounds active all four quadrants, no masses, no organomegaly. Extremities: Extremities normal, atraumatic, no cyanosis or edema. Pulses: 2+ and symmetric. Skin: Skin color, texture, tugor normal, no rashes or lesions. Neurologic: Alert oriented x3 cranial nerves II through XII intact, no motor deficit, no abnormal balance or gait. Assessment and Plan Plan: 1 chest pain and angina: With strong history of CAD post angioplasty and stent placement patient be hospitalized CK with troponin 3 be done, consult cardiology, continue current management for his cardiopathy and try to control his blood pressure later better at this point. If decided by cardiology might require to go for heart cath or stress test. Whether or not to repeat the echo specially from the recent one in May is to be determined. 2 significant coronary artery disease: Post angioplasty and stent placement from April 2018 seeing cardiology regular basis. 3 nonischemic cardiomyopathy with low ejection fraction of 35-40 percentile with global hypo-kinesia patient is on medical management to continue ARB, beta maribel, nitrates and diuretics. 4 noncontrolled hypertension: Will add hydralazine 25 mg twice a day for now. 5 severe neck pain: Patient had cervical fusion continued to suffer from significant pain and discomfort x-ray of the neck was requested. 6 hyperlipidemia: Continue patient on atorvastatin lipid panel been watch as an outpatient. 7 BPH: With no urinary obstruction continue medical management. 8 history of TIA: With no permanent damage. 9 A. fib with RVR: Pulse rate is well-controlled currently patient remain on anticoagulation without question still on Lopressor. 10 GI prophylaxis: Continue Pepcid 20 mg daily. Patient was seen and evaluated by cardiology, symptoms are noncardiac origin, C- spine x-ray showed significant trouble in the area between cervical spine second third patient's post right see his neurosurgeon for possible further management on it. His blood pressure is mildly elevated and with hydralazine 25 g twice a day has improved. He stable for discharge home today to follow up as an outpatient will probably need an arrangement for stress test as an outpatient. Plan - Discharge Summary New Discharge Prescriptions: New hydrALAZINE HCL [Apresoline] 25 mg PO BID #180 tab Continue Acetaminophen [Tylenol Arthritis] 1,300 mg PO BID@0700,1900 Metoprolol Tartrate 25 mg PO BID Losartan Potassium [Cozaar] 100 mg PO DAILY@0600 Baclofen [Lioresal] 10 mg PO BID@0700,1900 Apixaban [Eliquis] 5 mg PO BID@0700,1900 Allopurinol [Zyloprim] 300 mg PO DAILY@0600 L.acidoph,Paracasei, B.lactis [Probiotic] 1 cap PO DAILY@0600 Nitroglycerin Sl Tabs [Nitrostat] 0.4 mg SUBLINGUAL Q5M PRN #25 tab PRN Reason: Chest Pain Atorvastatin [Lipitor] 40 mg PO HS Loratadine [Claritin] 10 mg PO DAILY@0700 Sodium Bicarbonate Tab 650 mg PO BID@0700,1900 Clopidogrel [Plavix] 75 mg PO DAILY@0700 Buprenorphine [Butrans 5 MCG/HR] 1 patch TRANSDERM WE Discharge Medication List Acetaminophen [Tylenol Arthritis] 1,300 mg PO BID@0700,1900 02/21/18 [History] Allopurinol [Zyloprim] 300 mg PO DAILY@0600 02/21/18 [History] Apixaban [Eliquis] 5 mg PO BID@0700,1900 02/21/18 [History] Baclofen [Lioresal] 10 mg PO BID@0700,1900 02/21/18 [History] L.acidoph,Paracasei, B.lactis [Probiotic] 1 cap PO DAILY@0602/21/18 [History] Losartan Potassium [Cozaar] 100 mg PO DAILY@0602/21/18 [History] Metoprolol Tartrate 25 mg PO BID 02/21/18 [History] Nitroglycerin Sl Tabs [Nitrostat] 0.4 mg SUBLINGUAL Q5M PRN #25 tab 04/05/18 [Rx] Atorvastatin [Lipitor] 40 mg PO HS 07/08/19 [History] Buprenorphine [Butrans 5 MCG/HR] 1 patch TRANSDERM WE 07/08/19 [History] Clopidogrel [Plavix] 75 mg PO DAILY@0707/08/19 [History] Loratadine [Claritin] 10 mg PO DAILY@69907/08/19 [History] Sodium Bicarbonate Tab 650 mg PO BID@0700,189907/08/19 [History] hydrALAZINE HCL [Apresoline] 25 mg PO BID #180 tab 07/09/19 [Rx] Follow up Appointment(s)/Referral(s): Ayo Lange MD [Family Provider] - 07/24/19 9:30 am Joe Sanders MD [Primary Care Provider] - 1-2 days Discharge Disposition: HOME SELF-CARE
[2019-07-09] MEDS ORDERED: APIXABAN 5 MG TAB PO SCH (19:00)
[2019-07-09] MEDS ORDERED: ATORVASTATIN 40 MG TAB PO SCH (21:00)
[2019-07-10] MEDS ORDERED: LOSARTAN 50 MG TAB PO SCH (06:00)
[2019-07-10] MEDS ORDERED: CLOPIDOGREL 75 MG TAB PO SCH (07:00)
== END 2019-07-09 14:53 | disposition home or self-care (01) ==
LOC: EC 14:12 → 1SOBS 17:03
PROVIDERS: ADMIT Internal Medicine Geriatric Medicine; ATTEND Internal Medicine Geriatric Medicine
DX: I25.110 Atherosclerotic heart disease of native coronary artery with unstable angina pectoris (principal); I11.0 Hypertensive heart disease with heart failure; I50.22 Chronic systolic (congestive) heart failure; I42.8 Other cardiomyopathies; I48.19 Other persistent atrial fibrillation; R07.89 Other chest pain; I44.7 Left bundle-branch block, unspecified; I48.92 Unspecified atrial flutter; E78.00 Pure hypercholesterolemia, unspecified; E78.5 Hyperlipidemia, unspecified; M19.90 Unspecified osteoarthritis, unspecified site; M10.9 Gout, unspecified; F40.240 Claustrophobia; N40.0 Benign prostatic hyperplasia without lower urinary tract symptoms; G89.29 Other chronic pain; M54.5 Low back pain; Z96.89 Presence of other specified functional implants; I73.9 Peripheral vascular disease, unspecified; M50.31 Other cervical disc degeneration, high cervical region; M48.02 Spinal stenosis, cervical region; Z79.01 Long term (current) use of anticoagulants; Z79.82 Long term (current) use of aspirin; Z79.02 Long term (current) use of antithrombotics/antiplatelets; Z79.899 Other long term (current) drug therapy; Z86.73 Personal history of transient ischemic attack (TIA), and cerebral infarction without residual deficits; Z95.5 Presence of coronary angioplasty implant and graft; Z98.1 Arthrodesis status; Z87.891 Personal history of nicotine dependence; Z80.3 Family history of malignant neoplasm of breast
CPT/HCPCS: 93005 ×2; 99291; 36415; 80061; 80053; 83735; 84484 ×2; 85025; 85610; 85730; 72050; 71046; G0378 ×2

== ENCOUNTER → 2019-07-18 | Outpatient (CLI) | payer MEDICARE ==
--- NOTE | 2019-07-18 10:54 | MR ---
EXAMINATION TYPE: MR lumbar spine wo con DATE OF EXAM: 07/18/2019 COMPARISON: X-ray 01/31/2019 HISTORY: Low back pain TECHNIQUE: T1 and T2 axial and sagittal images of the lumbar spine are submitted. FINDINGS: There is no abnormal signal seen within the visualized spinal cord or paraspinal soft tissu es. A tiny simple appearing cyst noted involving the upper pole of the right kidney. At L1-2 there is degenerative disc disease with facet arthropathy. Central disc bulging noted with mi ld effacement of thecal sac. No canal stenosis or foraminal encroachment. At L2-3 there is degenerative disc disease with diffuse disc bulging and hypertrophy of the ligamentu m flavum and facets. Moderate canal stenosis and bilateral foraminal encroachment. At L3-4 there is degenerative disc disease with broad-based central disc protrusion or herniation. Th ere is facet arthropathy and ligamentum flavum with moderate to severe canal stenosis. Bilateral fora robert encroachment. At L4-5 there is an 1 anterolisthesis likely secondary to advanced facet arthropathy with ligamentum flavum hypertrophy. Broad-based disc protrusion results in moderate to severe canal stenosis and bila teral foraminal encroachment. At L5-S1 there is advanced facet arthropathy. Broad-based disc bulging with mild effacement of thecal sac. Neural foramina appear to be patent bilaterally. Mild narrowing noted bilaterally. IMPRESSION: 1. Multilevel degenerative disc disease with advanced facet arthropathy and grade 1 anterolisthesis L 4 and L5. 2. Hypertrophic changes and disc protrusions result in multilevel severe canal stenosis and bilateral foraminal encroachment as discussed above. 3. Central disc herniation L3-L4 contributes to severe canal stenosis at L3-4.
== END | disposition home or self-care (01) ==
LOC: RADMRIMAIN 08:54
PROVIDERS: ATTEND Internal Medicine Geriatric Medicine
DX: M48.061 Spinal stenosis, lumbar region without neurogenic claudication (principal); M51.26 Other intervertebral disc displacement, lumbar region; M43.16 Spondylolisthesis, lumbar region; M51.36 Other intervertebral disc degeneration, lumbar region; M46.96 Unspecified inflammatory spondylopathy, lumbar region
CPT/HCPCS: 72148

== ENCOUNTER → 2019-07-28 | Outpatient (CLI) | payer MEDICARE ==
[2019-07-28 12:07] VITALS: PULSE 60; RESP 15
[2019-07-28 12:13] VITALS: BP 148/89
--- NOTE | 2019-07-29 08:06 | P.PAINCN ---
History of Present Illness - Reason for Consult Consult date: 07/28/19 - History of Present Illness This is a initial consultation of visit for this 73 years old male, the chronic history of severe neck pain and low back pain, she reported that currently most of his problem is coming from the neck, but he had also low back pain issues, he reported that the pain mostly in the neck area is not radiated to the upper extremity, but on very rare occasion he had some numbness and tingling sensation in his fingers, he denies any weakness he denies any motor or sensory deficit, he denies any fever or night sweats, he reported that he had surgical interventions on his neck 2, and the last interventions was several years ago, the pain in the neck is constant interfere with the quality of life, and he also complaining of severe low back pain, he denies any motor deficit in the lower extremity, he is able to ambulate without difficulty, is currently on Neurontin 100 mg 3 times a day and baclofen 10 mg twice a day, he denies any side effect of the medication, he denies any excessive drowsiness or sleepiness, and he reported the current medication is not helping enough to improve his pain. Past Medical History Past Medical History: Chest Pain / Angina, CVA/TIA, Hyperlipidemia, Hypertension, Osteoarthritis (OA) Additional Past Medical History / Comment(s): hx migraines, gout, past tia, neck pain, History of Any Multi-Drug Resistant Organisms: None Reported Past Surgical History: Appendectomy, Heart Catheterization, Heart Catheterization With Stent Additional Past Surgical History / Comment(s): cervical fusion, rt carotid surgery, upper front dental implants, one cardiac stent Past Anesthesia/Blood Transfusion Reactions: Motion Sickness Additional Past Anesthesia/Blood Transfusion Reaction / Comm: claustrophobia. never had a blood transfusion Date of Last Stent Placement:: 2017 Smoking Status: Former smoker - Past Family History Mother Family Medical History: Cancer Additional Family Medical History / Comment(s): breast with metastasis Brother(s) Family Medical History: Cancer Medications and Allergies Home Medications Medication Instructions Recorded Confirmed Type Acetaminophen [Tylenol Arthritis] 1,300 mg PO DAILY 02/21/18 07/28/19 History Allopurinol [Zyloprim] 300 mg PO DAILY 02/21/18 07/24/19 History Apixaban [Eliquis] 5 mg PO BID 02/21/18 07/24/19 History Baclofen [Lioresal] 10 mg PO BID 02/21/18 07/24/19 History L.acidoph,Paracasei, B.lactis 1 cap PO DAILY 02/21/18 07/24/19 History [Probiotic] Losartan Potassium [Cozaar] 100 mg PO DAILY 02/21/18 07/24/19 History Metoprolol Tartrate 25 mg PO BID 02/21/18 07/24/19 History Nitroglycerin Sl Tabs [Nitrostat] 0.4 mg SUBLINGUAL Q5M PRN #25 tab 04/05/18 07/24/19 Rx Atorvastatin [Lipitor] 40 mg PO HS 07/08/19 07/24/19 History Clopidogrel [Plavix] 75 mg PO DAILY 07/08/19 07/24/19 History Loratadine [Claritin] 10 mg PO DAILY PRN 07/08/19 07/24/19 History Sodium Bicarbonate Tab 650 mg PO BID 07/08/19 07/24/19 History hydrALAZINE HCL [Apresoline] 25 mg PO BID #180 tab 07/09/19 07/24/19 Rx Gabapentin [Neurontin] 100 mg PO TID 07/24/19 07/28/19 History Allergies Allergy/AdvReac Type Severity Reaction Status Date / Time No Known Allergies Allergy Verified 07/24/19 13:15 Physical Exam Vitals: Vital Signs Pulse Resp BP Pulse Ox 07/28/19 11:59 60 15 148/89 97 REVIEW OF ORGAN SYSTEMS: CONSTITUTIONAL: No fevers or chills. No recent weight loss. EYES: denies troubles with vision. HEENT: No difficulties with hearing. No nosebleeds. No difficulty swallowing. RESPIRATORY: Denies any troubles with breathing or dyspnea on exertion. CARDIOVASCULAR: Denies any chest pain, palpitations, or recent heart attacks. GASTROINTESTINAL: Denies fatty food intolerance. Has change in bowel habits and gas bloat. GENITOURINARY: Denies any blood in urine. Has increased urinary frequency. NEUROLOGICAL: no numbness and tingling along the distal extremities. No seizure disorders or headaches. MUSCULOSKELETAL: Has neck pain ,and back pain. SKIN:no skin cancer. No rash. PSYCHIATRIC: Denies current depression or suicidal thoughts. ENDOCRINE: Denies current thyroid disorders. Denies any blood sugar glucose intolerance. HEME/LYMPHATIC: Denies any lumps and bumps around the neck. History of deep venous thrombosis. ALLERGY/IMMUNOLOGY: No immunoglobulin therapy. No immune deficiencies. BREAST: Denies current breast lumps, pain or nipple discharge. Physical Examinations : Constitutiona : Cooperative , not in acute distress . HEENT : nech : supple , no Lymphadenopathy , normal thyroid size . : eyes no ptosis , no icterus, no photophobia . : ENT normal of hearing , normal oropharynx , no Thrush . Respiratory : Chest clear to auscultations Bilaterally , no wheezing , no Rhonchi . Cardiovascula : regular rate and rhythem , S1 , S2 , no S3 , no S4. Gastrointestina : abdomen soft no tenderness , bowel sounds , no organomegally . Genitourinary : Defferred . neurologic : Cranial nerve II to XII intact , no focal neurological deffecit . psychatric : alert , oriented X 3 , appropriate affect , intact judgment and insight . Lymphatic : no Lymphadenopathy . musculoskeltal : Cervical Spine motor stregnth in the deltoid and biceps, normal right side , normal Left side motor stregnth biceps and the wrist extensors normal right side ,normal left side . motor stregnth in the triceps muscle . normal Right side , normal Left side deep tendon reflexes= normal at the biceps , normal at Brachioradialis , normal at triceps. cervical facet loading test: Positive Bilaterally Spurling test= positive bilaterally. Neck distraction test= positive bilate rally. Fly sign= positive bilaterally. Lumber spine moter stegnth lower extremities ,thigh and legs 5/5 Right side , 5/5 Left side deep tendon reflexes : normal Knee Jerk , normal ankle Jerk lumber facet Loading Test= positive Right , positive Left Range of motion of the lumbar spine Flexion 30 degrees, extension 10 degrees strait leg raising test , positive at degree Fabere test= positive Right , and positive left . tenderness over the Sacroiliac joint on the Right , and Left sides Results Comments: MRI of the cervical spine= postsurgical changes in the cervical spine, and foraminal stenosis, and facet joint arthropathy at C2-C3, C3 4 C4 5 and C5 6. MRI of the lumbar spine= multilevel lumbar degenerative disc disease and central canal stenosis and multilevel facet arthropathy and that his disc herniation at L3 4 Assessment and Plan Plan: Assessment and plan= Chronic severe neck pain secondary to cervical spondylosis with cervical facet arthropathy, failed back surgery syndrome cervical area, cervical foraminal stenosis chronic low back pain secondary to lumbar degenerative disc disease , lumbar spondylosis with lumbar facet arthropathy . The patient reported that his neck pain is more severe than his low back pain and he would like to start treatment of his neck pain, and currently most of the pain is coming from the facetogenic component, he will be good candidate for diagnostic medial branch block cervical area x2 , and possible RFA if he had positive results Time with Patient: Greater than 30 PQRS Measure Charge Sheet Measure #130: Documentation of Current Meds in Medical Chart: Patient's medications documented in chart Measure #226: Tobacco Use: Screen & Cessation Intervention: Pt not a tobacco user Measure #111: Pneumonia Vaccination: Pneumococcal vaccine NOT administered or previously given Measure #47: Advance Care Plan: Advance care planning discussed & documented, pt chose/unable to give Measure #412: Opioid Treatment Agreement: No documentation of signed opioid treatment agreement Measure #408: Opioid Therapy Follow-up Evaluation: Patient had NO f/u eval minimum every 3 months during opioid therapy Measure #317: Preventitive Care & Scrn High Bld Press & F/U: Pre-hypertensive or hypertensive BP documented, pt will f/u with PCP Measure #128: Body Mass Index (BMI) Screening & Follow-up: BMI documented ABOVE normal parameters - f/u documented Measure #131: Pain Assessment & Follow-up: Pain positive & plan documented, Follow-up scheduled Measure #431: Unhealthy Alcohol Use Preventative Care & Scrn: Patient not identified as an unhealthy alcohol user PQRS Narrative: Smoking Status Former smoker Blood Pressure 148/89 Pain Intensity [Neck] 7 Scale Used Numeric (1 - 10) Hx Alcohol Use (MH) Yes Home Medications: Ambulatory Orders Acetaminophen [Tylenol Arthritis] 1,300 mg PO DAILY 02/21/18 Allopurinol [Zyloprim] 300 mg PO DAILY 02/21/18 Apixaban [Eliquis] 5 mg PO BID 02/21/18 Baclofen [Lioresal] 10 mg PO BID 02/21/18 L.acidoph,Paracasei, B.lactis [Probiotic] 1 cap PO DAILY 02/21/18 Losartan Potassium [Cozaar] 100 mg PO DAILY 02/21/18 Metoprolol Tartrate 25 mg PO BID 02/21/18 Nitroglycerin Sl Tabs [Nitrostat] 0.4 mg SUBLINGUAL Q5M PRN #25 tab 04/05/18 Atorvastatin [Lipitor] 40 mg PO HS 07/08/19 Clopidogrel [Plavix] 75 mg PO DAILY 07/08/19 Loratadine [Claritin] 10 mg PO DAILY PRN 07/08/19 Sodium Bicarbonate Tab 650 mg PO BID 07/08/19 hydrALAZINE HCL [Apresoline] 25 mg PO BID #180 tab 07/09/19 Gabapentin [Neurontin] 100 mg PO TID 07/24/19
== END ==
LOC: PNWHC3 10:59
PROVIDERS: ATTEND Specialist
DX: G89.29 Other chronic pain (principal); M47.812 Spondylosis without myelopathy or radiculopathy, cervical region; M46.92 Unspecified inflammatory spondylopathy, cervical region; M51.36 Other intervertebral disc degeneration, lumbar region; M47.816 Spondylosis without myelopathy or radiculopathy, lumbar region; M46.96 Unspecified inflammatory spondylopathy, lumbar region; M96.1 Postlaminectomy syndrome, not elsewhere classified; Z87.891 Personal history of nicotine dependence; Z79.899 Other long term (current) drug therapy; Z79.01 Long term (current) use of anticoagulants
CPT/HCPCS: 99211

== ENCOUNTER 2019-08-13 08:20 | Day surgery (SDC) | payer MEDICARE ==
[2019-08-12 10:15] VITALS: BMI 29.6
[~2019-08-13 08:20] MED LIST changes: -PROPOFOL 10 MG/ML 20 ML VIAL IV ONE; -SODIUM CHLORIDE 0.9% 1,000 ML IV SCH
[2019-08-13 08:48] VITALS: TEMP 97.8
[2019-08-13] MEDS ORDERED: LIDOCAINE 1% 20 ML VIAL (10MG/ML) FOR IV START INTRADERMA ONE (08:49)
[2019-08-13] MEDS ORDERED: LACTATED RINGERS 1,000 ML IV ONE (08:49)
[2019-08-13] MEDS ORDERED: IV FLUID CONTINUATION 1,000 ML IV ONE ×3 (09:38)
--- NOTE | 2019-08-13 09:41 | P.PCN ---
Date of Procedure: 08/13/19 Procedure(s) Performed: PREOPERATIVE DIAGNOSIS: 1-Cervical Spondylosis with Facet Arthropathy.without myelopathy. 2-Failed back surgery syndrome , cervical area POSTOPERATIVE DIAGNOSIS: 1-Cervical Spondylosis Facet Arthropathy. Without myelopathy. 2-failed back surgery syndrome and cervical area. PROCEDURES: Diagnostic ,Bilateral C 2 , C3, C4 , C5 medial branch blocks, with fluoroscopic guidance (fluoroscopy images available in radiology department ) ( to target the facet joint at C2-3 , C3-4 , C4- 5 , ) ANESTHESIA: Local with 1% lidocaine; moderate sedation with Versed.2 mg , and fentanyl 100 micrograms EBL: Minimal PROCEDURE INDICATION: The patient with neck pain secondary to cervical arthropathy unresponsive to more conservative treatments. PROCEDURE DESCRIPTION / TECHNIQUE: The patient was seen and identified in the preoperative area. Risks, benefits, complications, and alternatives were discussed with the patient, the patient agreed to proceed with the procedure and signed the consent. IV was started. Vital signs remained stable throughout the procedure. Patient was taken to the OR and time out was completed. The patient was placed in the prone position on the procedure table. A pillow was placed under the patients chest to increase the cervical interlaminar space. The cervical area was prepped and draped in the usual sterile fashion. Critical pause was taken. Vital signs were closely monitored during the procedure. Conscious sedation was used during the procedure to decrease patients anxiety. Using cross-table lateral fluoroscopy, the centroid of the trapezoid of right C 2 ,C3, C4 , C5 was identified, marked, and localized with 1% lidocaine 1 ml at each level for skin and Sub Q infiltrations . Subsequently, a 22 G 4 spinal needle was advanced guided by fluoroscopy to the centroid of the trapezoid of Right C2 ,C3, C4 , C5,. [place]lo[place] tip position was confirmed at the centroid of the trapezoids of Right C2 ,C3 , C4 , C5 with anteroposterior fluoroscopy. Subsequently, 2 ml of preservative-free Ropivacaine 0.5% mixed with Depo- Medrol 20 mg and half ml of the mixture was injected after negative aspiration for blood and CSF. [place] was then removed intact the same procedure was repeated at the left C2,C3 , C4 , C5 , levels. COMPLICATIONS: No acute complications. DISPOSITION / PLANS: The patient was placed in a supine position and transferred to the recovery area in a stable condition for observation and was discharged from the recovery room after meeting discharge criteria. Home discharge instructions given to the patient by the staff. The patient was reexamined prior to discharge. The patient will schedule a follow up in the clinic in 2-4 weeks.
[2019-08-13 09:51] VITALS: BP 138/76; RESP 16
[2019-08-13 10:02] VITALS: PULSE 62
--- NOTE | 2019-08-13 10:02 | FL ---
EXAMINATION TYPE: FL guided pain mgmt statistic DATE OF EXAM: 08/13/2019 CLINICAL HISTORY: Neck pain. TECHNIQUE: Fluoroscopy. COMPARISON: None. FINDINGS: Fluoroscopic guidance was provided during pain relief procedure performed by Dr. Aguirre . A total of 12 seconds of fluoroscopic time was utilized during the procedure and 4 spot images are acquired. Images acquired shows needle localization of the cervical spine IMPRESSION: As Above.
== END 2019-08-13 10:12 | disposition home or self-care (01) ==
LOC: ORPAIN 08:20
PROVIDERS: ATTEND Specialist
DX: M47.812 Spondylosis without myelopathy or radiculopathy, cervical region (principal); M96.1 Postlaminectomy syndrome, not elsewhere classified; Z79.01 Long term (current) use of anticoagulants
CPT/HCPCS: 64490; 64491; 64492; J2250; J1030; J3010; 99152; 99153

== ENCOUNTER → 2019-09-18 | Day surgery (SDC) | payer MEDICARE ==
[2019-09-15 15:46] VITALS: BMI 28.4
[2019-09-18 09:00] VITALS: BP 154/83; PULSE 49; RESP 16; TEMP 97.2
--- NOTE | 2019-09-18 09:20 | P.PN ---
Progress Note - Text Progress Note Date: 09/18/19 Patient was scheduled to have bilateral diagnostic cervical medial branch blocks today, this would be his second procedure. On evaluating the patient in preop, he reports that he got no benefit from the first diagnostic block. We had a discussion and concluded that a second diagnostic block would be of no benefit to him. We will schedule to see him in clinic to discuss alternative options.
== END ==
LOC: ORPAIN 07:54
PROVIDERS: ATTEND Anesthesiology
DX: M50.30 Other cervical disc degeneration, unspecified cervical region (principal); Z53.8 Procedure and treatment not carried out for other reasons

== ENCOUNTER → 2019-10-01 | Outpatient (CLI) | payer MEDICARE ==
[2019-10-01 12:38] VITALS: BP 144/84; PULSE 62; RESP 18
--- NOTE | 2019-10-01 20:13 | P.PAINPG ---
Subjective Progress Note Date: 10/01/19 This is a follow-up visit for this 74 years old male, the chronic history of severe neck pain and low back pain, diagnosed with cervical spondylosis with cervical facet arthropathy and cervical degenerative disc disease cervical failed back surgery syndrome, patient had 2 surgical interventions on his neck, and he continued to have severe neck pain, simply we have done diagnostic medial branch block cervical area, patient reported that he had 0 benefit from the block, his pain continued to be in the same before and after the block, he denies any weakness he denies any motor or sensory deficit, he denies any fever or night sweats, and the last interventions was several years ago, the pain in the neck is constant interfere with the quality of life, and he also complaining of severe low back pain, he denies any motor deficit in the lower extremity, he is able to ambulate without difficulty, is currently on Neurontin 100 mg 3 times a day and baclofen 10 mg twice a day, he denies any side effect of the medication, he denies any excessive drowsiness or sleepiness, and he reported the current medication is not helping enough to improve his pain. He is currently on Plavix and Eliquis because of his heart disease Objective - Vital Signs Vital signs: Vital Signs Temp Pulse 62 10/01/19 12:35 Resp 18 10/01/19 12:35 BP 144/84 10/01/19 12:35 Pulse Ox 96 10/01/19 12:35 - Exam Constitutiona : Cooperative , not in acute distress . HEENT : nech : supple , no Lymphadenopathy , normal thyroid size . : eyes no ptosis , no icterus, no photophobia . : ENT normal of hearing , normal oropharynx , no Thrush . Respiratory : Chest clear to auscultations Bilaterally , no wheezing , no Rhonchi . Cardiovascula : regular rate and rhythem , S1 , S2 , no S3 , no S4. Gastrointestina : abdomen soft no tenderness , bowel sounds , no organomegally . Genitourinary : Defferred . neurologic : Cranial nerve II to XII intact , no focal neurological deffecit . psychatric : alert , oriented X 3 , appropriate affect , intact judgment and insight . Lymphatic : no Lymphadenopathy . musculoskeltal : Cervical Spine motor stregnth in the deltoid and biceps, normal right side , normal Left side motor stregnth biceps and the wrist extensors normal right side ,normal left side . motor stregnth in the triceps muscle . normal Right side , normal Left side deep tendon reflexes= normal at the biceps , normal at Brachioradialis , normal at triceps. cervical facet loading test: Positive Bilaterally Spurling test= positive bilaterally. Neck distraction test= positive bilaterally. Fly sign= positive bilaterally. Lumber spine moter stegnth lower extremities ,thigh and legs 5/5 Right side , 5/5 Left side deep tendon reflexes : normal Knee Jerk , normal ankle Jerk lumber facet Loading Test= positive Right , positive Left Range of motion of the lumbar spine Flexion 30 degrees, extension 10 degrees strait leg raising test , positive at degree Fabere test= positive Right , and positive left . tenderness over the Sacroiliac joint on the Right , and Left sides Assessment and Plan Plan: Chronic severe neck pain secondary to cervical spondylosis with cervical facet arthropathy, failed back surgery syndrome cervical area, cervical foraminal stenosis chronic low back pain secondary to lumbar degenerative disc disease , lumbar spondylosis with lumbar facet arthropathy . Status post diagnostic medial branch block cervical area, patient had negative response to medial branch block, he would be a good candidate to have Cervical epidural steroid injection under fluoroscopy guidance at C7-T1, patient have to hold Plavix and ELIQUIS before the procedure Time with Patient: Less than 30 PQRS Measure Charge Sheet Measure #130: Documentation of Current Meds in Medical Chart: Patient's medications documented in chart Measure #226: Tobacco Use: Screen & Cessation Intervention: Pt not a tobacco user Measure #111: Pneumonia Vaccination: Pneumococcal vaccine administered or previously received Measure #47: Advance Care Plan: Advance care planning discussed & documented, pt chose/unable to give Measure #412: Opioid Treatment Agreement: No documentation of signed opioid treatment agreement Measure #408: Opioid Therapy Follow-up Evaluation: Patient had NO f/u eval minimum every 3 months during opioid therapy Measure #317: Preventitive Care & Scrn High Bld Press & F/U: Pre-hypertensive or hypertensive BP documented, pt will f/u with PCP Measure #128: Body Mass Index (BMI) Screening & Follow-up: BMI documented ABOVE normal parameters - f/u documented Measure #131: Pain Assessment & Follow-up: Pain positive & plan documented, Follow-up scheduled Measure #431: Unhealthy Alcohol Use Preventative Care & Scrn: Patient not identified as an unhealthy alcohol user PQRS Narrative: Smoking Status Former smoker Blood Pressure 144/84 Pain Intensity [Neck] 4 Scale Used Numeric (1 - 10) Hx Alcohol Use (MH) Yes Home Medications: Ambulatory Orders Acetaminophen [Tylenol Arthritis] 650 mg PO DAILY 02/21/18 Allopurinol [Zyloprim] 300 mg PO DAILY 02/21/18 Apixaban [Eliquis] 5 mg PO BID 02/21/18 Baclofen [Lioresal] 10 mg PO BID 02/21/18 Metoprolol Tartrate 25 mg PO BID 02/21/18 Nitroglycerin Sl Tabs [Nitrostat] 0.4 mg SUBLINGUAL Q5M PRN #25 tab 04/05/18 Atorvastatin [Lipitor] 40 mg PO HS 07/08/19 Clopidogrel [Plavix] 75 mg PO DAILY 07/08/19 Loratadine [Claritin] 10 mg PO DAILY PRN 07/08/19 Sodium Bicarbonate Tab 650 mg PO BID 07/08/19 hydrALAZINE HCL [Apresoline] 25 mg PO BID #180 tab 07/09/19 Gabapentin [Neurontin] 100 mg PO TID 07/24/19 Buprenorphine [Buprenorphine 5 MCG/HR] 1 patch TRANSDERM Q7D PRN 08/12/19 Losartan Potassium [Cozaar] 100 mg PO DAILY 09/15/19 Controlled Substance Measures - Controlled Substance Measures Is patient prescribed a controlled substance at discharge?: No
== END ==
LOC: PNWHC3 12:12
PROVIDERS: ATTEND Specialist
DX: G89.29 Other chronic pain (principal); M48.02 Spinal stenosis, cervical region; M47.812 Spondylosis without myelopathy or radiculopathy, cervical region; M46.92 Unspecified inflammatory spondylopathy, cervical region; M51.36 Other intervertebral disc degeneration, lumbar region; M47.816 Spondylosis without myelopathy or radiculopathy, lumbar region; M46.96 Unspecified inflammatory spondylopathy, lumbar region; M96.1 Postlaminectomy syndrome, not elsewhere classified; Z87.891 Personal history of nicotine dependence; Z79.899 Other long term (current) drug therapy
CPT/HCPCS: 99211

== ENCOUNTER 2020-06-20 10:52 | Inpatient (IN) | payer MEDICARE ==
[2020-06-20] MEDS ORDERED: SODIUM CHLORIDE 0.9% 1,000 ML IV STA (11:20)
[2020-06-20 11:33] LABS: Basophils % (A) 0 %; Eosinophils # (A) 0.1 k/uL (0-0.7); Eosinophils % (A) 1 %; HCT 42.2 % (39.0-53.0); HGB 13.4 gm/dL (13.0-17.5); Lymphocytes # (A) 1.3 k/uL (1.0-4.8); Lymphocytes % (A) 22 %; MCH 32.5 pg (25.0-35.0); MCHC 31.8 g/dL (31.0-37.0); MCV 102.2 fL (80.0-100.0); Macrocytosis Slight; Mean Platelet Volume 8.6; Monocytes # (A) 0.4 k/uL (0-1.0); Monocytes % (A) 7 %; Neutrophils # (A) 4.1 k/uL (1.3-7.7); Neutrophils % (A) 68 %; Platelet Count 170 k/uL (150-450); RBC 4.13 m/uL (4.30-5.90); RDW 13.2 % (11.5-15.5)
[2020-06-20 11:44] LABS: ALT 36 U/L (4-49); AST 37 U/L (17-59); African American GFR (CKD) >90 (>60 ml/min/1.73 sqM); Albumin 4.3 g/dL (3.5-5.0); Alkaline Phosphatase 89 U/L (38-126); Amylase 108 U/L (30-110); Anion Gap 6 mmol/L; Blood Urea Nitrogen 28 mg/dL (9-20); Carbon Dioxide 29 mmol/L (22-30); Chloride 104 mmol/L (98-107); Glucose 108 mg/dL (74-99); Non-African American GFR(CKD) 86 (>60 ml/min/1.73 sqM); Sodium 139 mmol/L (137-145); Total Bilirubin 0.9 mg/dL (0.2-1.3); Total Protein 6.8 g/dL (6.3-8.2)
[2020-06-20 11:45] LABS: INR 1.1 (<1.2); Partial Thromboplastin Time 25.3 sec (22.0-30.0); Prothrombin Time 11.6 sec (9.0-12.0)
[2020-06-20 11:54] LABS: Mucus,Urine Many /hpf; RBC,Urine >182 /hpf (0-5); WBC,Urine 36 /hpf (0-5)
[2020-06-20 11:56] LABS: Appearance,Urine Bloody (Clear); Color,Urine Red
--- NOTE | 2020-06-20 12:12 | ED ---
Male Urogenital HPI - General Chief complaint: Urogenital Stated complaint: GI Bleed, low back pain Time Seen by Provider: 06/20/20 11:12 Source: patient, RN notes reviewed Mode of arrival: ambulatory Limitations: no limitations - History of Present Illness Initial comments: This a 74-year-old male presents emergency Department chief complaint of low ba ck pain, hematuria. Patient states his started vomiting. Patient states that he is on Eliquis. Patient denies any rectal bleeding no melena hematochezia. Patient states that he has no history kidney stones denies any dysuria or any prior prostate issues. Patient states that he's never had any like this in the past. Denies any nausea vomiting no fevers or chills. - Related Data Home Medications Medication Instructions Recorded Confirmed Acetaminophen [Tylenol Arthritis] 1,300 mg PO DAILY@0700 02/21/18 06/20/20 Apixaban [Eliquis] 5 mg PO BID@0700,1900 02/21/18 06/20/20 Baclofen [Lioresal] 10 mg PO BID@0700,1900 02/21/18 06/20/20 Metoprolol Tartrate 25 mg PO BID@0700,1900 02/21/18 06/20/20 allopurinoL [Zyloprim] 300 mg PO DAILY@0500 02/21/18 06/20/20 Atorvastatin [Lipitor] 40 mg PO DAILY@0700 07/08/19 06/20/20 Clopidogrel [Plavix] 75 mg PO DAILY@0700 07/08/19 06/20/20 Sodium Bicarbonate Tab 650 mg PO BID@0700,1900 07/08/19 06/20/20 Gabapentin [Neurontin] 100 mg PO DAILY@0700 07/24/19 06/20/20 Buprenorphine [Buprenorphine 5 1 patch TRANSDERM HINDS 08/12/19 06/20/20 MCG/HR] Losartan Potassium [Cozaar] 100 mg PO DAILY@0500 09/15/19 06/20/20 Cefuroxime [Ceftin] 250 mg PO BID@0700,1900 06/20/20 06/20/20 DULoxetine HCL [Cymbalta] 30 mg PO DAILY@0700 06/20/20 06/20/20 DULoxetine HCL [Cymbalta] 60 mg PO DAILY@1900 06/20/20 06/20/20 Donepezil HCl [Aricept] 10 mg PO BID@0700,1900 06/20/20 06/20/20 Gabapentin [Neurontin] 200 mg PO DAILY@1900 06/20/20 06/20/20 L.acidoph,Paracasei, B.lactis 1 cap PO DAILY@0500 06/20/20 06/20/20 [Probiotic] Memantine HCl 10 mg PO DAILY@1900 06/20/20 06/20/20 Tamsulosin HCl [Flomax] 0.4 mg PO DAILY@0700 06/20/20 06/20/20 hydrALAZINE HCL [Apresoline] 25 mg PO BID@0700,1900 06/20/20 06/20/20 Previous Rx's Medication Instructions Recorded Nitroglycerin Sl Tabs [Nitrostat] 0.4 mg SUBLINGUAL Q5M PRN #25 tab 04/05/18 Allergies Allergy/AdvReac Type Severity Reaction Status Date / Time No Known Allergies Allergy Verified 06/20/20 11:58 Review of Systems ROS Statement: Those systems with pertinent positive or pertinent negative responses have been documented in the HPI. ROS Other: All systems not noted in ROS Statement are negative. Past Medical History Past Medical History: Chest Pain / Angina, CVA/TIA, Hyperlipidemia, Hypertension, Osteoarthritis (OA) Additional Past Medical History / Comment(s): hx migraines, gout, past tia, neck pain, History of Any Multi-Drug Resistant Organisms: None Reported Past Surgical History: Appendectomy, Heart Catheterization, Heart Catheterization With Stent Additional Past Surgical History / Comment(s): cervical fusion, rt carotid surgery, upper front dental implants, one cardiac stent Past Anesthesia/Blood Transfusion Reactions: Motion Sickness Additional Past Anesthesia/Blood Transfusion Reaction / Comment(s): claustrophobia. never had a blood transfusion Date of Last Stent Placement:: 2017 Past Psychological History: No Psychological Hx Reported Smoking Status: Never smoker Past Alcohol Use History: Occasional Past Drug Use History: None Reported - Past Family History Mother Family Medical History: Cancer Additional Family Medical History / Comment(s): breast with metastasis Brother(s) Family Medical History: Cancer General Exam Limitations: no limitations General appearance: alert, in no apparent distress Head exam: Present: atraumatic, normocephalic, normal inspection Eye exam: Present: normal appearance, PERRL, EOMI. Absent: scleral icterus, conjunctival injection, periorbital swelling ENT exam: Present: normal exam, normal oropharynx, mucous membranes moist Neck exam: Present: normal inspection. Absent: tenderness, meningismus, lymphadenopathy Respiratory exam: Present: normal lung sounds bilaterally. Absent: respiratory distress, wheezes, rales, rhonchi, stridor Cardiovascular Exam: Present: normal rhythm, bradycardia, normal heart sounds. Absent: systolic murmur, diastolic murmur, rubs, gallop, clicks GI/Abdominal exam: Present: soft, normal bowel sounds. Absent: distended, tend erness, guarding, rebound, rigid Back exam: Absent: CVA tenderness (R), CVA tenderness (L) Course Vital Signs 06/20/20 06/20/20 10:57 12:18 Temperature 98.5 F Pulse Rate 50 L Respiratory 18 Rate Blood Pressure 137/81 O2 Sat by Pulse 89 L 99 Oximetry Medical Decision Making - Medical Decision Making 34-year-old male presented for hematuria abdominal back discomfort. Patient has evidence of acute pancreatitis, gross hematuria with thickened bladder wall this may be underlying C a. Patient will be admitted for further evaluation by urology and Dr. Sanders - Lab Data Result diagrams: 06/20/20 11:24 06/20/20 11:24 Lab Results 06/20/20 06/20/20 06/20/20 Range/Units 11:24 11:24 11:24 WBC 6.0 (3.8-10.6) k/uL RBC 4.13 L (4.30-5.90) m/uL Hgb 13.4 (13.0-17.5) gm/dL Hct 42.2 (39.0-53.0) % MCV 102.2 H (80.0-100.0) fL MCH 32.5 (25.0-35.0) pg MCHC 31.8 (31.0-37.0) g/dL RDW 13.2 (11.5-15.5) % Plt Count 170 (150-450) k/uL Neutrophils % 68 % Lymphocytes % 22 % Monocytes % 7 % Eosinophils % 1 % Basophils % 0 % Neutrophils # 4.1 (1.3-7.7) k/uL Lymphocytes # 1.3 (1.0-4.8) k/uL Monocytes # 0.4 (0-1.0) k/uL Eosinophils # 0.1 (0-0.7) k/uL Basophils # 0.0 (0-0.2) k/uL Macrocytosis Slight PT 11.6 (9.0-12.0) sec INR 1.1 (<1.2) APTT 25.3 (22.0-30.0) sec Sodium (137-145) mmol/L Potassium (3.5-5.1) mmol/L Chloride (98-107) mmol/L Carbon Dioxide (22-30) mmol/L Anion Gap mmol/L BUN (9-20) mg/dL Creatinine (0.66-1.25) mg/dL Est GFR (CKD-EPI)AfAm (>60 ml/min/1.73 sqM) Est GFR (CKD-EPI)NonAf (>60 ml/min/1.73 sqM) Glucose (74-99) mg/dL Calcium (8.4-10.2) mg/dL Total Bilirubin (0.2-1.3) mg/dL AST (17-59) U/L ALT (4-49) U/L Alkaline Phosphatase (38-126) U/L Total Protein (6.3-8.2) g/dL Albumin (3.5-5.0) g/dL Amylase (30-110) U/L Lipase (23-300) U/L Urine Color Red Urine Appearance Bloody (Clear) Urine RBC >182 H (0-5) /hpf Urine WBC 36 H (0-5) /hpf Urine Mucus Many H (None) /hpf 06/20/20 Range/Units 11:24 WBC (3.8-10.6) k/uL RBC (4.30-5.90) m/uL Hgb (13.0-17.5) gm/dL Hct (39.0-53.0) % MCV (80.0-100.0) fL MCH (25.0-35.0) pg MCHC (31.0-37.0) g/dL RDW (11.5-15.5) % Plt Count (150-450) k/uL Neutrophils % % Lymphocytes % % Monocytes % % Eosinophils % % Basophils % % Neutrophils # (1.3-7.7) k/uL Lymphocytes # (1.0-4.8) k/uL Monocytes # (0-1.0) k/uL Eosinophils # (0-0.7) k/uL Basophils # (0-0.2) k/uL Macrocytosis PT (9.0-12.0) sec INR (<1.2) APTT (22.0-30.0) sec Sodium 139 (137-145) mmol/L Potassium 4.0 (3.5-5.1) mmol/L Chloride 104 (98-107) mmol/L Carbon Dioxide 29 (22-30) mmol/L Anion Gap 6 mmol/L BUN 28 H (9-20) mg/dL Creatinine 0.87 (0.66-1.25) mg/dL Est GFR (CKD-EPI)AfAm >90 (>60 ml/min/1.73 sqM) Est GFR (CKD-EPI)NonAf 86 (>60 ml/min/1.73 sqM) Glucose 108 H (74-99) mg/dL Calcium 9.0 (8.4-10.2) mg/dL Total Bilirubin 0.9 (0.2-1.3) mg/dL AST 37 (17-59) U/L ALT 36 (4-49) U/L Alkaline Phosphatase 89 (38-126) U/L Total Protein 6.8 (6.3-8.2) g/dL Albumin 4.3 (3.5-5.0) g/dL Amylase 108 (30-110) U/L Lipase 1162 H (23-300) U/L Urine Color Urine Appearance (Clear) Urine RBC (0-5) /hpf Urine WBC (0-5) /hpf Urine Mucus (None) /hpf Disposition Clinical Impression: Gross hematuria, Bladder wall thickening, Acute pancreatitis Disposition: ADMITTED IP TO THIS [facility] Condition: Fair Referrals: Joe Sanders MD [Primary Care Provider] - 1-2 days
--- NOTE | 2020-06-20 12:36 | CT ---
EXAMINATION TYPE: CT abdomen pelvis wo con DATE OF EXAM: 06/20/2020 COMPARISON: None HISTORY: 74-year-old male Left sided Abdominal and bilateral flank pain with hematuria. CT DLP: 797.5 mGycm. Automated exposure control for dose reduction was used. TECHNIQUE: Contiguous axial scanning of the abdomen and pelvis without IV contrast. Coronal and sagit teodora reconstructions performed. FINDINGS: Heart normal size without pericardial effusion. Scattered LAD and RCA coronary artery calcifications are present. Lung bases clear without pleural effusion. Tiny hiatal hernia. Noncontrast appearance of the liver, gallbladder, adrenal glands, spleen, and pancreas show no gross abnormal body by noncontrast CT. Hypodense lesions within the bilateral kidneys, largest lateral mid to lower pole right kidney measur es 2.1 cm with intermediate attenuation and can be reassessed at follow-up. Additional small lesions within the right kidney measure 1.0 cm and 0.9 cm. Hypodense lesion in the left kidney measures 2.4 cm, probable cyst. There is an ovoid 1.3 x 0.7 cm calculus within the right renal pelvis with associated pelviectasis bu t no kushal calyceal dilatation to suggest hydronephrosis. No ureteral calculus seen on either side. No dilated small bowel, free fluid, free air. No mesenteric or retroperitoneal lymphadenopathy. Appendix not identified. No secondary findings of acute appendicitis. Scattered [id number] stoo l. Mild circumferential bladder wall thickening of the mid to lower rectum on axial image 151 may rel ate to adherent stool material. Bladder nondistended but with mild circumferential wall thickening. Prostate gland enlargement 5.2 cm wide. No abnormal fluid collection in the pelvis or pelvic lymphadenopathy. Bones: Osteopenia. Degenerative bony ankylosis of the SI joints. Hypertrophic facet arthropathy mid t o lower lumbar spine with grade 1 anterolisthesis at L4-L5 and grade 1 retrolisthesis at L2-L3. There is severe bilateral neural foraminal stenosis at L4-L5. IMPRESSION: 1. A 1.3 x 0.7 cm oval calculus within the right renal pelvis with associated pelviectasis but no ca lyceal dilatation to suggest hydronephrosis or obstructive uropathy at this time. 2. Bilateral hypodense renal lesions likely represent cysts. Many are too small for accurate CT kym acterization. The largest on the right measures 2.1 cm with intermediate attenuation probably represe nting a mildly complicated cyst. Follow-up CT in 6 months to ensure stability. 3. Mild circumferential wall thickening of the mid to lower rectum could relate to adherent stool ma terial or nonspecific mild colitis. Clinically correlate. 4. Circumferential bladder wall thickening could reflect chronic bilateral hypertrophy or cystitis. 5. Prostatomegaly at 5.2 cm wide.
[2020-06-20] MEDS ORDERED: NALOXONE 0.4 MG/ML 1 ML VIAL IV PRN (12:58)
[2020-06-20] MEDS: SODIUM CHLORIDE 0.9% 1,000 ML IV SCH (13:17)
[2020-06-20] MEDS ORDERED: NITROGLYCERIN SL TABS 0.4 MG TAB SUBLINGUAL PRN (15:27)
--- NOTE | 2020-06-20 16:50 | P.HPIM ---
History of Present Illness H&P Date: 06/20/20 Chief Complaint: Acute pancreatitis, hematuria, dyspepsia, reaction to Donepazil and worseni 73-year-old male one of my office patient with multiple medical problem was known to have chronic back and neck pain post multiple surgery who also had history of CAD post PCI and stent placement, history of BPH, history of hypertension hyperlipidemia who was diagnosed with worsening dementia has been on Donepazil and Namenda. Patient medication were adjusted recently because of worsening memory he developed to have severe dyspepsia worsening appetite with generalized fatigue and tiredness with slight abdominal pain also developed to have mild lower abdominal discomfort with hematuria was diagnosed with UTI but mostly prostatitis was prescribed Ceftin along with Flomax. Patient has improved slight bed but not recover completely ended up being seen by his family today and found to have more nausea and worsening abdominal pain decided to bring him to the emergency department at [facility] where was seen and evaluated found to have significant hematuria on not testing with some WBC and his urine his lipase was 1162 with amylase 108 CAT scan of the abdomen and pelvis revealed no pseudocyst on the pancreatic area that showed small stone in the right renal pelvis area with bilateral hypodense renal lesion likely present cyst. Mild circumferential wall thickening of the mid to lower rectum could be related to adherent of stool material are nonspecifically mild colitis also had circumferential bladder wall thickening could reflect chronic bilateral hypertrophic or cystitis also had prostatomegaly at 5.2 cm wide. Patient was started on hydration we'll admit patient to the hospital rest his bowel will be seen urology also we'll stop his anticoagulation for now continue antibiotic for prostatitis and repeat lipase and amylase for his pancreatitis might need to see gastroenterology for symptoms are not better. As for his memory medication will decrease his Aricept to 10 mg a day and continue Namenda at lower dose at nighttime. Review of Systems CONSTITUTIONAL: Well-developed no acute respiratory distress. EYES: No icterus sclerae, no conjunctivitis. EARS, NOSE, MOUTH, THROAT, and FACE: No sore throat, lymphadenopathy, carotid bruits or deformity. RESPIRATORY: No SOB cough or wheezes. CARDIOVASCULAR: No CP, Palpitation, PND, Orthopnea, or angina. GASTROINTESTINAL: Mild abdominal pain with discomfort nausea without vomiting : positive hematuria with lower abdominal discomfort with frequency and urgency. Negative for Hematuria or UTI, no kidney stones. INTEGUMENT/BREAST: Negative for any muscular injury with mild osteoarthritis.. HEMATOLOGIC/LYMPHATIC: Negative for bleed or purpura. MUSCULOSKELTAL: Negative for Myalgia or arthralgia. NEURLOGICAL: No LOC, Sz or syncope, blurred vision dizziness or abnormality.. Positive generalized weakness with confusion. BEHAVIORAL/PSYCH: Negative. Worsening memory loss. ENDOCRINE: Negative. Past Medical History Past Medical History: Chest Pain / Angina, CVA/TIA, Hyperlipidemia, Hypertension, Osteoarthritis (OA) Additional Past Medical History / Comment(s): hx migraines, gout, past tia, neck pain, History of Any Multi-Drug Resistant Organisms: None Reported Past Surgical History: Appendectomy, Heart Catheterization, Heart Catheterization With Stent Additional Past Surgical History / Comment(s): cervical fusion, rt carotid surge ry, upper front dental implants, one cardiac stent Past Anesthesia/Blood Transfusion Reactions: Motion Sickness Additional Past Anesthesia/Blood Transfusion Reaction / Comment(s): claustrophobia. never had a blood transfusion Date of Last Stent Placement:: 2017 Smoking Status: Former smoker - Past Family History Mother Family Medical History: Cancer Additional Family Medical History / Comment(s): breast with metastasis Brother(s) Family Medical History: Cancer Medications and Allergies Home Medications Medication Instructions Recorded Confirmed Type Acetaminophen [Tylenol Arthritis] 1,300 mg PO DAILY@0700 02/21/18 06/20/20 Histo ry Apixaban [Eliquis] 5 mg PO BID@0700,1900 02/21/18 06/20/20 History Baclofen [Lioresal] 10 mg PO BID@0700,189902/21/18 06/20/20 History Metoprolol Tartrate 25 mg PO BID@0700,1900 02/21/18 06/20/20 History allopurinoL [Zyloprim] 300 mg PO DAILY@0500 02/21/18 06/20/20 History Nitroglycerin Sl Tabs [Nitrostat] 0.4 mg SUBLINGUAL Q5M PRN #25 tab 04/05/18 06/20/20 Rx Atorvastatin [Lipitor] 40 mg PO DAILY@0700 07/08/19 06/20/20 History Clopidogrel [Plavix] 75 mg PO DAILY@0700 07/08/19 06/20/20 History Sodium Bicarbonate Tab 650 mg PO BID@0700,1900 07/08/19 06/20/20 History Gabapentin [Neurontin] 100 mg PO DAILY@0700 07/24/19 06/20/20 History Buprenorphine [Buprenorphine 5 1 patch TRANSDERM HINDS 08/12/19 06/20/20 History MCG/HR] Losartan Potassium [Cozaar] 100 mg PO DAILY@0500 09/15/19 06/20/20 History Cefuroxime [Ceftin] 250 mg PO BID@0700,1900 06/20/20 06/20/20 History DULoxetine HCL [Cymbalta] 30 mg PO DAILY@0700 06/20/20 06/20/20 History DULoxetine HCL [Cymbalta] 60 mg PO DAILY@1900 06/20/20 06/20/20 History Donepezil HCl [Aricept] 10 mg PO BID@0700,1900 06/20/20 06/20/20 History Gabapentin [Neurontin] 200 mg PO DAILY@1900 06/20/20 06/20/20 History L.acidoph,Paracasei, B.lactis 1 cap PO DAILY@0500 06/20/20 06/20/20 History [Probiotic] Memantine HCl 10 mg PO DAILY@1900 06/20/20 06/20/20 History Tamsulosin HCl [Flomax] 0.4 mg PO DAILY@0700 06/20/20 06/20/20 History hydrALAZINE HCL [Apresoline] 25 mg PO BID@0700,1900 06/20/20 06/20/20 History Allergies Allergy/AdvReac Type Severity Reaction Status Date / Time No Known Allergies Allergy Verified 06/20/20 11:58 Physical Exam Vitals: Vital Signs Temp Pulse Pulse Resp BP BP Pulse Ox 06/20/20 14:48 98.1 F 59 L 17 156/86 96 06/20/20 13:17 69 18 137/94 100 06/20/20 12:18 99 06/20/20 10:57 98.5 F 50 L 18 137/81 89 L Intake and Output 06/20/20 06/20/20 06/20/20 06:59 14:59 22:59 Other: Weight 108.862 kg General Appearance: Alert, cooperative, no distress, appears stated age. Neck HEENT: Very stiff wearing Cervical spine collar since his last neck surgery., no lymphadenopathy, no thyroid enlargement, no carotid bruits. Lungs: Clear to auscultation without crackles or wheezes no rhonchi, no deformity. Chest Wall: Decrease expansion with deep inspiration no tenderness and no deformity was found on exam, no costochondral pain or discomfort. Heart: Irregular rate and rhythm, S1, S2 positive S3 positive JVD. Back: Asymmetric significant curvature and discomfort. Abdomen: Soft positive bowel sound significant tenderness in the epigastric and mid abdominal region area no rebound or rigidity. Extremities: Extremities normal, atraumatic, no cyanosis or edema. Pulses: 2+ and symmetric. Skin: Skin color, texture, tugor normal, no rashes or lesions. Neurologic: Alert oriented significant confusion cranial nerves II through XII intact, no motor deficit, no abnormal balance or gait. Results CBC & Chem 7: 06/20/20 11:24 06/20/20 11:24 Labs: Abnormal Lab Results - Last 24 Hours (Table) 06/20/20 06/20/20 06/20/20 Range/Units 11:24 11:24 11:24 RBC 4.13 L (4.30-5.90) m/uL MCV 102.2 H (80.0-100.0) fL BUN 28 H (9-20) mg/dL Glucose 108 H (74-99) mg/dL Lipase 1162 H (23-300) U/L Urine RBC >182 H (0-5) /hpf Urine WBC 36 H (0-5) /hpf Urine Mucus Many H (None) /hpf Thrombosis Risk Factor Assmnt - DVT/VTE Prophylaxis DVT/VTE Prophylaxis: Pharmacologic Prophylaxis ordered, Mechanical Prophylaxis ordered - Choose All That Apply Each Factor Represents 1 point: Medical pt on bed rest Each Risk Factor Represents 2 Points: Age 61-74 years Thrombosis Risk Factor Assessment Total Risk Factor Score: 3 Thrombosis Risk Factor Assessment Level: Moderate Risk Assessment and Plan Assessment: 1 abdominal pain: Mostly pancreatitis and gastritis will admit patient to the hospital continue bowel rest continue hydration continue PPI. 2 acute pancreatitis: Not a clear etiology no sign of gallstones far from abdominal CAT scan and no sign of pseudocyst will continue to monitor symptoms carefully repeat lipase and amylase next 24 hours along with liver function test. 3 severe gastritis and dyspepsia: Mostly from higher dose of Donepazil which was held for a few days and decrease dose to once a day only continue Protonix for now twice a day to the symptoms are better. 4 gross hematuria: With thicker cystitis with? Off any abnormality consistent with her bladder cancer patient will be seen urology who continue Flomax continue antibiotic to treat prostatitis and possible need for cystoscopy. 5 Severe dementia: Patient back on Donepazil and Namenda. 6 chronic pain syndrome: Patient is back on albuterol and 5 mg weekly along with Tylenol No. 3 as needed. 7 CAD: Post PCI and stent placement no chest pain or angina seen cardiology regular basis continue secondary prevention with metoprolol losartan Plavix and nitrate. 8 A. fib with RVR: Pulse rates under control currently on metoprolol 25 mg twice a day continue patient on Eliquis 5 mg twice a day. 9 hyperlipidemia: Remain on atorvastatin 20 mg daily. 10 chronic depression: Patient remain on Cymbalta total of 60 mg daily. 11 chronic neuropathy: Patient is on Neurontin total of 300 mg daily. 12 recurrent gout: With no flareup still on allopurinol treatment milligrams a day. 13 GI prophylaxis: On PPI. 14 DVT prophylaxis: Patient was on anticoagulation. CODE STATUS: Full code. Admit patient to inpatient service for more than 2 night stay.
[2020-06-20] MEDS: hydrALAZINE HCL 25 MG TAB PO SCH (20:49)
[2020-06-20] MEDS: CEFDINIR 300 MG CAP PO SCH (20:49)
[2020-06-20] MEDS: DONEPEZIL 10 MG TAB PO SCH (20:49)
[2020-06-20] MEDS: METOPROLOL TARTRATE 25 MG TAB PO SCH (20:49)
[2020-06-20] MEDS: DULoxetine HCL 60 MG CAPSULE.DR PO SCH (20:49)
[2020-06-20] MEDS: BACLOFEN 10 MG TAB PO SCH (20:50)
[2020-06-20] MEDS: GABAPENTIN 100 MG CAP PO SCH (20:50)
[2020-06-20] MEDS: MEMANTINE 10 MG TAB PO SCH (20:50)
[2020-06-20] MEDS: SODIUM BICARBONATE TAB 650 MG TAB PO SCH (20:52)
[2020-06-21 05:43] LABS: Basophils % (A) 0 %; Eosinophils # (A) 0.1 k/uL (0-0.7); Eosinophils % (A) 2 %; Lymphocytes # (A) 1.8 k/uL (1.0-4.8); Lymphocytes % (A) 27 %; MCH 32.6 pg (25.0-35.0); MCHC 31.7 g/dL (31.0-37.0); MCV 102.6 fL (80.0-100.0); Macrocytosis Slight; Mean Platelet Volume 8.5; Monocytes # (A) 0.4 k/uL (0-1.0); Monocytes % (A) 6 %; Neutrophils # (A) 4.2 k/uL (1.3-7.7); Neutrophils % (A) 63 %; Platelet Count 158 k/uL (150-450); RBC 3.99 m/uL (4.30-5.90); RDW 12.8 % (11.5-15.5); WBC 6.6 k/uL (3.8-10.6)
[2020-06-21] MEDS: SODIUM CHLORIDE 0.9% 1,000 ML IV SCH ×2 (07:55→08:50)
[2020-06-21] MEDS: LACTOBACILLUS ACIDOPH & BULGAR 1 EACH PACKET PO SCH (08:04)
[2020-06-21] MEDS: allopurinoL 300 MG TAB PO SCH (08:04)
[2020-06-21] MEDS: LOSARTAN 50 MG TAB PO SCH (08:05)
[2020-06-21] MEDS: hydrALAZINE HCL 25 MG TAB PO SCH ×2 (08:50→21:44)
[2020-06-21] MEDS: CEFDINIR 300 MG CAP PO SCH ×2 (08:51→21:43)
[2020-06-21] MEDS: CLOPIDOGREL 75 MG TAB PO SCH (08:51)
[2020-06-21] MEDS: BACLOFEN 10 MG TAB PO SCH ×2 (08:51→21:43)
[2020-06-21] MEDS: TAMSULOSIN 0.4 MG CAP.ER.24H PO SCH (08:51)
[2020-06-21] MEDS: METOPROLOL TARTRATE 25 MG TAB PO SCH ×2 (08:51→23:20)
[2020-06-21] MEDS: SODIUM BICARBONATE TAB 650 MG TAB PO SCH ×2 (08:52→23:21)
[2020-06-21] MEDS: GABAPENTIN 100 MG CAP PO SCH ×2 (08:52→21:44)
[2020-06-21] MEDS: ACETAMINOPHEN TAB 325 MG TAB PO SCH (08:53)
[2020-06-21] MEDS: ATORVASTATIN 40 MG TAB PO SCH (08:53)
--- NOTE | 2020-06-21 10:07 | P.GSCN ---
History of Present Illness Consult date: 06/21/20 History of present illness: 74 yo male brought family because of increasing pain and nausea. He states that he came in for hematuria. Apparently was diagnosed and treated for prostatitis recently. I do not have the ua or c&s from that. He was placed on ceftin and flomax with minimal improvement. In the er a ct scan identified a 13x7 mm right renal pelvic stone without obstruction. He is on blood thinners which would aggravate the hematuria. His ua showed 187 rbc and 32 wbc culture is pending. He apparently has chemistries suggesting pancreatitis. He ia asx now. He apparently has some dementia. He struggles with answers. He has no previous urological problems. He is on anticoagulation but really doesnt know why. Review of Systems All systems: negative Past Medical History Past Medical History: Chest Pain / Angina, CVA/TIA, Hyperlipidemia, Hypertension, Osteoarthritis (OA) Additional Past Medical History / Comment(s): hx migraines, gout, past tia, neck pain, History of Any Multi-Drug Resistant Organisms: None Reported Past Surgical History: Appendectomy, Heart Catheterization, Heart Chikis terization With Stent Additional Past Surgical History / Comment(s): cervical fusion, rt carotid surgery, upper front dental implants, one cardiac stent Past Anesthesia/Blood Transfusion Reactions: Motion Sickness Additional Past Anesthesia/Blood Transfusion Reaction / Comm: claustrophobia. never had a blood transfusion Date of Last Stent Placement:: 2017 Smoking Status: Former smoker - Past Family History Mother Family Medical History: Cancer Additional Family Medical History / Comment(s): breast with metastasis Brother(s) Family Medical History: Cancer Medications and Allergies Home Medications Medication Instructions Recorded Confirmed Type Acetaminophen [Tylenol Arthritis] 1,300 mg PO DAILY@0700 02/21/18 06/20/20 History Apixaban [Eliquis] 5 mg PO BID@0700,189902/21/18 06/20/20 History Baclofen [Lioresal] 10 mg PO BID@0700,189902/21/18 06/20/20 History Metoprolol Tartrate 25 mg PO BID@0700,1900 02/21/18 06/20/20 History allopurinoL [Zyloprim] 300 mg PO DAILY@0500 02/21/18 06/20/20 History Nitroglycerin Sl Tabs [Nitrostat] 0.4 mg SUBLINGUAL Q5M PRN #25 tab 04/05/18 06/20/20 Rx Atorvastatin [Lipitor] 40 mg PO DAILY@0700 07/08/19 06/20/20 History Clopidogrel [Plavix] 75 mg PO DAILY@0700 07/08/19 06/20/20 History Sodium Bicarbonate Tab 650 mg PO BID@0700,1900 07/08/19 06/20/20 History Gabapentin [Neurontin] 100 mg PO DAILY@0700 07/24/19 06/20/20 History Buprenorphine [Buprenorphine 5 1 patch TRANSDERM HINDS 08/12/19 06/20/20 History MCG/HR] Losartan Potassium [Cozaar] 100 mg PO DAILY@0500 09/15/19 06/20/20 History Cefuroxime [Ceftin] 250 mg PO BID@0700,1900 06/20/20 06/20/20 History DULoxetine HCL [Cymbalta] 30 mg PO DAILY@0700 06/20/20 06/20/20 History DULoxetine HCL [Cymbalta] 60 mg PO DAILY@1900 06/20/20 06/20/20 History Donepezil HCl [Aricept] 10 mg PO BID@0700,1900 06/20/20 06/20/20 History Gabapentin [Neurontin] 200 mg PO DAILY@19006/20/20 06/20/20 History L.acidoph,Paracasei, B.lactis 1 cap PO DAILY@0500 06/20/20 06/20/20 History [Probiotic] Memantine HCl 10 mg PO DAILY@1900 06/20/20 06/20/20 History Tamsulosin HCl [Flomax] 0.4 mg PO DAILY@0700 06/20/20 06/20/20 History hydrALAZINE HCL [Apresoline] 25 mg PO BID@0700,1900 06/20/20 06/20/20 History Allergies Allergy/AdvReac Type Severity Reaction Status Date / Time No Known Allergies Allergy Verified 06/20/20 11:58 Surgical - Exam Vital Signs Temp Pulse Resp BP Pulse Ox 98.5 F 50 L 18 137/81 89 L 06/20/20 10:57 06/20/20 10:57 06/20/20 10:57 06/20/20 10:57 06/20/20 10:57 - General well developed, well nourished, no distress - Eyes PERRL - ENT no hearing loss - Neck trachea midline - Respiratory normal expansion, normal respiratory effort - Cardiovascular Rhythm: regular - Abdomen Abdomen: soft, non tender - Genitourinary normal penis with no external lesions, testicles present - Integumentary no rash, no growths - Neurologic normal sensation, memory loss - Musculoskeletal normal posture Results - Labs 06/21/20 04:56 06/20/20 11:24 Abnormal Lab Results - Last 24 Hours (Table) 06/20/20 06/20/20 06/20/20 Range/Units 11:24 11:24 11:24 RBC 4.13 L (4.30-5.90) m/uL MCV 102.2 H (80.0-100.0) fL BUN 28 H (9-20) mg/dL Glucose 108 H (74-99) mg/dL Lipase 1162 H (23-300) U/L Urine RBC >182 H (0-5) /hpf Urine WBC 36 H (0-5) /hpf Urine Mucus Many H (None) /hpf 06/21/20 Range/Units 04:56 RBC 3.99 L (4.30-5.90) m/uL MCV 102.6 H (80.0-100.0) fL BUN (9-20) mg/dL Glucose (74-99) mg/dL Lipase (23-300) U/L Urine RBC (0-5) /hpf Urine WBC (0-5) /hpf Urine Mucus (None) /hpf Microbiology - Last 24 Hours (Table) 06/20/20 11:24 Urine Culture - Preliminary Urine,Voided Diabetes panel 06/20/20 Range/Units 11:24 Sodium 139 (137-145) mmol/L Potassium 4.0 (3.5-5.1) mmol/L Chloride 104 (98-107) mmol/L Carbon Dioxide 29 (22-30) mmol/L BUN 28 H (9-20) mg/dL Creatinine 0.87 (0.66-1.25) mg/dL Glucose 108 H (74-99) mg/dL Calcium 9.0 (8.4-10.2) mg/dL AST 37 (17-59) U/L ALT 36 (4-49) U/L Alkaline Phosphatase 89 (38-126) U/L Total Protein 6.8 (6.3-8.2) g/dL Albumin 4.3 (3.5-5.0) g/dL Calcium panel 06/20/20 Range/Units 11:24 Calcium 9.0 (8.4-10.2) mg/dL Albumin 4.3 (3.5-5.0) g/dL Pituitary panel 06/20/20 Range/Units 11:24 Sodium 139 (137-145) mmol/L Potassium 4.0 (3.5-5.1) mmol/L Chloride 104 (98-107) mmol/L Carbon Dioxide 29 (22-30) mmol/L BUN 28 H (9-20) mg/dL Creatinine 0.87 (0.66-1.25) mg/dL Glucose 108 H (74-99) mg/dL Calcium 9.0 (8.4-10.2) mg/dL Adrenal panel 06/20/20 Range/Units 11:24 Sodium 139 (137-145) mmol/L Potassium 4.0 (3.5-5.1) mmol/L Chloride 104 (98-107) mmol/L Carbon Dioxide 29 (22-30) mmol/L BUN 28 H (9-20) mg/dL Creatinine 0.87 (0.66-1.25) mg/dL Glucose 108 H (74-99) mg/dL Calcium 9.0 (8.4-10.2) mg/dL Total Bilirubin 0.9 (0.2-1.3) mg/dL AST 37 (17-59) U/L ALT 36 (4-49) U/L Alkaline Phosphatase 89 (38-126) U/L Total Protein 6.8 (6.3-8.2) g/dL Albumin 4.3 (3.5-5.0) g/dL - Imaging CT scan - abdomen: report reviewed, image reviewed CT scan - pelvis: report reviewed, image reviewed Assessment and Plan Assessment: Impression: RIght renal pelvic stone with hematuria. Pancreatitis. anticoagulation. cad htn Plan: The patient will need treatment for this stone electivley. THe most efficient would be ESWL. He will need to be off the blood thinners. I will discuss this with Dr Sanders
[2020-06-21 10:58] LABS: African American GFR (CKD) 86.2 (60.0-200.0); Albumin 3.7 g/dL (3.80-4.90); Albumin/Globulin Ratio 1.76 (1.60-3.17); Anion Gap 9.9 mmol/L (4.00-12.00); Calcium 9.2 mg/dL (8.7-10.3); Carbon Dioxide 28.1 mmol/L (21.6-31.8); Globulin 2.1 g/dL (1.6-3.3); Non-African American GFR(CKD) 74.3 (60.0-200.0); Potassium 4.3 mmol/L (3.5-5.5); Total Bilirubin 1.6 mg/dL (0.2-1.2); Total Protein 5.8 g/dL (6.2-8.2)
[2020-06-21] MEDS ORDERED: PANTOPRAZOLE 40 MG TABLET PO SCH (11:30)
--- NOTE | 2020-06-21 11:41 | P.PN ---
Subjective Progress Note Date: 06/21/20 HISTORY OF PRESENT ILLNESS 73-year-old male one of my office patient with multiple medical problem was known to have chronic back and neck pain post multiple surgery who also had h istory of CAD post PCI and stent placement, history of BPH, history of hypertension hyperlipidemia who was diagnosed with worsening dementia has been on Donepazil and Namenda. Patient medication were adjusted recently because of worsening memory he developed to have severe dyspepsia worsening appetite with generalized fatigue and tiredness with slight abdominal pain also developed to have mild lower abdominal discomfort with hematuria was diagnosed with UTI but mostly prostatitis was prescribed Ceftin along with Flomax. Patient has improved slight bed but not recover completely ended up being seen by his family today and found to have more nausea and worsening abdominal pain decided to negrita ng him to the emergency department at [facility] where was seen and evaluated found to have significant hematuria on not testing with some WBC and his urine his lipase was 1162 with amylase 108 CAT scan of the abdomen and pelvis revealed no pseudocyst on the pancreatic area that showed small stone in the right renal pelvis area with bilateral hypodense renal lesion likely present cyst. Mild circumferential wall thickening of the mid to lower rectum could be related to adherent of stool material are nonspecifically mild colitis also had circumferential bladder wall thickening could reflect chronic bilateral hypertrophic or cystitis also had prostatomegaly at 5.2 cm wide. Patient was started on hydration we'll admit patient to the hospital rest his bowel will be seen urology also we'll stop his anticoagulation for now continue antibiotic for prostatitis and repeat lipase and amylase for his pancreatitis might need to see gastroenterology for symptoms are not better. As for his memory medication will decrease his Aricept to 10 mg a day and continue Namenda at lower dose at nighttime. 06/21: Patient has been seen by Dr. Tellez for right renal pelvic stone with hematuria. Patient will need treatment for this stone electively and will need to be off blood thinners. Anticipate this will be done as an outpatient once patient is stabilized from episode of pancreatitis. Repeat blood work reveals WBC 6.6, hemoglobin 13, platelet count 158. Sodium 146, potassium 4.3, chloride 108, CO2 28.1, BUN 20 creatinine 1. Total bilirubin 1.6, liver function tests normal. Lipase 42. Diet will be advanced to low-fat. IV fluids transitioned to saline lock. He has been afebrile, heart rate 67, blood pressure 149/80, pulse ox 98% on room air. REVIEW OF SYSTEMS CONSTITUTIONAL: Well-developed no acute respiratory distress. No fever EYES: No icterus sclerae, no conjunctivitis. EARS, NOSE, MOUTH, THROAT, and FACE: No sore throat, lymphadenopathy, carotid bruits or deformity. RESPIRATORY: No SOB cough or wheezes. CARDIOVASCULAR: No CP, Palpitation, PND, Orthopnea, or angina. GASTROINTESTINAL: Mild abdominal pain with discomfort nausea without vomiting : positive hematuria with lower abdominal discomfort with frequency and urgency. Negative for Hematuria or UTI, no kidney stones. INTEGUMENT/BREAST: Negative for any muscular injury with mild osteoarthritis.. HEMATOLOGIC/LYMPHATIC: Negative for bleed or purpura. MUSCULOSKELTAL: Negative for Myalgia or arthralgia. NEURLOGICAL: No LOC, Sz or syncope, blurred vision dizziness or abnormality.. Positive generalized weakness with confusion. BEHAVIORAL/PSYCH: Negative. Worsening memory loss. ENDOCRINE: Negative. PHYSICAL EXAMINATION General Appearance: Alert, cooperative, no distress, appears stated age. Neck HEENT: Very stiff wearing Cervical spine collar since his last neck surgery., no lymphadenopathy, no thyroid enlargement, no carotid bruits. Lungs: Clear to auscultation without crackles or wheezes no rhonchi, no deformity. Chest Wall: Decrease expansion with deep inspiration no tenderness and no deformity was found on exam, no costochondral pain or discomfort. Heart: Irregular rate and rhythm, S1, S2 positive S3 positive JVD. Back: Asymmetric significant curvature and discomfort. Abdomen: Soft positive bowel sound significant tenderness in the epigastric and mid abdominal region area no rebound or rigidity. Extremities: Extremities normal, atraumatic, no cyanosis or edema. Pulses: 2+ and symmetric. Skin: Skin color, texture, tugor normal, no rashes or lesions. Neurologic: Alert oriented significant confusion cranial nerves II through XII intact, no motor deficitit. ASSESSMENT AND PLAN 1 abdominal pain: Mostly pancreatitis and gastritis. Discontinue IV fluids. Advance diet to low-fat. Continue PPI. 2 acute pancreatitis: Not a clear etiology no sign of gallstones. Advance diet. 3 severe gastritis and dyspepsia: Mostly from higher dose of Donepazil which was held for a few days and decrease dose to once a day only continue Protonix for now twice a day to the symptoms are better. 4 gross hematuria. Consult with urology appreciated, continue Flomax continue antibiotic to treat prostatitis and possible need for cystoscopy. 5 Severe dementia: Patient back on Donepazil and Namenda. 6 chronic pain syndrome: Continue baclofen 10 mg twice daily, gabapentin twice daily, with Tylenol as needed. 7 CAD: Post PCI and stent placement no chest pain or angina seen cardiology regular basis continue secondary prevention with metoprolol losartan Plavix and nitrate. 8 chronic atrial fibrillation: Pulse rates under control currently on metoprolol 25 mg twice a day continue patient on Eliquis 5 mg twice a day. 9 hyperlipidemia: Remain on atorvastatin 20 mg daily. 10 chronic depression: Patient remain on Cymbalta total of 60 mg daily. 11 chronic neuropathy: Patient is on Neurontin total of 300 mg daily. 12 recurrent gout: With no flareup still on allopurinol treatment milligrams a day. 13 GI prophylaxis: On PPI. 14 DVT prophylaxis: Patient was on anticoagulation. CODE STATUS: Full code. DISCHARGE PLAN To be determined Impression and plan of care have been directed as dictated by the signing physician. Amber Vivar nurse practitioner acting as scribe for signing phys ician. Objective - Vital Signs Vital signs: Vital Signs Temp 98.1 F 06/20/20 20:39 Pulse 67 06/21/20 00:00 Resp 17 06/21/20 00:00 BP 149/80 06/20/20 20:39 Pulse Ox 98 06/20/20 20:39 Intake & Output 06/20/20 06/21/20 06/21/20 18:59 06:59 18:59 Intake Total 250 Output Total 250 Balance -250 250 Weight 108.862 kg Intake: Oral 250 Output: Urine 250 Other: Voiding Method Urinal Urinal Urinal - Labs CBC & Chem 7: 06/21/20 04:56 06/21/20 04:56 Labs: Abnormal Lab Results - Last 24 Hours (Table) 06/20/20 06/20/20 06/20/20 Range/Units 11:24 11:24 11:24 RBC 4.13 L (4.30-5.90) m/uL MCV 102.2 H (80.0-100.0) fL BUN 28 H (9-20) mg/dL Glucose 108 H (74-99) mg/dL Lipase 1162 H (23-300) U/L Urine RBC >182 H (0-5) /hpf Urine WBC 36 H (0-5) /hpf Urine Mucus Many H (None) /hpf 06/21/20 Range/Units 04:56 RBC 3.99 L (4.30-5.90) m/uL MCV 102.6 H (80.0-100.0) fL BUN (9-20) mg/dL Glucose (74-99) mg/dL Lipase (23-300) U/L Urine RBC (0-5) /hpf Urine WBC (0-5) /hpf Urine Mucus (None) /hpf Microbiology - Last 24 Hours (Table) 06/20/20 11:24 Urine Culture - Preliminary Urine,Voided
[2020-06-21] MEDS: PANTOPRAZOLE 40 MG TABLET PO SCH ×2 (12:50→17:25)
[2020-06-21 14:00] VITALS: BMI 28.4
[2020-06-21] MEDS: DONEPEZIL 10 MG TAB PO SCH (21:43)
[2020-06-21] MEDS: DULoxetine HCL 60 MG CAPSULE.DR PO SCH (21:43)
[2020-06-21] MEDS: MEMANTINE 10 MG TAB PO SCH (23:21)
[2020-06-22 05:00] VITALS: BP 150/87; PULSE 59; RESP 16; TEMP 97.4
[2020-06-22] MEDS: LACTOBACILLUS ACIDOPH & BULGAR 1 EACH PACKET PO SCH (05:09)
[2020-06-22] MEDS: allopurinoL 300 MG TAB PO SCH (05:09)
[2020-06-22] MEDS: LOSARTAN 50 MG TAB PO SCH (05:09)
[2020-06-22] MEDS: CEFDINIR 300 MG CAP PO SCH (07:21)
[2020-06-22] MEDS: ATORVASTATIN 40 MG TAB PO SCH (07:21)
[2020-06-22] MEDS: PANTOPRAZOLE 40 MG TABLET PO SCH (07:21)
[2020-06-22] MEDS: SODIUM BICARBONATE TAB 650 MG TAB PO SCH (07:21)
[2020-06-22] MEDS: METOPROLOL TARTRATE 25 MG TAB PO SCH (07:22)
[2020-06-22] MEDS: hydrALAZINE HCL 25 MG TAB PO SCH (07:22)
[2020-06-22] MEDS: ACETAMINOPHEN TAB 325 MG TAB PO SCH (07:22)
[2020-06-22] MEDS: TAMSULOSIN 0.4 MG CAP.ER.24H PO SCH (07:22)
[2020-06-22] MEDS: CLOPIDOGREL 75 MG TAB PO SCH (07:22)
[2020-06-22] MEDS: BACLOFEN 10 MG TAB PO SCH (07:22)
[2020-06-22] MEDS: GABAPENTIN 100 MG CAP PO SCH (07:22)
--- NOTE | 2020-06-22 09:06 | P.DS ---
Providers Date of admission: 06/20/20 12:58 Expected date of discharge: 06/22/20 Attending physician: Joe Sanders Consults: 06/20/20 12:58 Consult Physician Routine Consulting Provider: Dl Tellez Consult Reason/Comments: Gross hematuria, thickened bladder wall Do you want consulting provider notified?: Yes Primary care physician: Joe Tommy [facility] Course: HISTORY OF PRESENT ILLNESS 73-year-old male one of my office patient with multiple medical problem was known to have chronic back and neck pain post multiple surgery who also had history of CAD post PCI and stent placement, history of BPH, history of hypertension hyperlipidemia who was diagnosed with worsening dementia has been on Donepazil and Namenda. Patient medication were adjusted recently because of worsening memory he developed to have severe dyspepsia worsening appetite with generalized fatigue and tiredness with slight abdominal pain also developed to have mild lower abdominal discomfort with hematuria was diagnosed with UTI but mostly prostatitis was prescribed Ceftin along with Flomax. Patient has improved slight bed but not recover completely ended up being seen by his family today and found to have more nausea and worsening abdominal pain decided to bring him to the emergency department at [facility] where was seen and evaluated found to have significant hematuria on not testing with some WBC and his urine his lipase was 1162 with amylase 108 CAT scan of the abdomen and pelvis revealed no pseudocyst on the pancreatic area that showed small stone in the right renal pelvis area with bilateral hypodense renal lesion likely present cyst. Mild circumferential wall thickening of the mid to lower rectum could be related to adherent of stool material are nonspecifically mild colitis also had circumferential bladder wall thickening could reflect chronic bilateral hypertrophic or cystitis also had prostatomegaly at 5.2 cm wide. Patient was started on hydration we'll admit patient to the hospital rest his bowel will be seen urology also we'll stop his anticoagulation for now continue antibiotic for prostatitis and repeat lipase and amylase for his pancreatitis might need to see gastroenterology for symptoms are not better. As for his memory medication will decrease his Aricept to 10 mg a day and continue Namenda at lower dose at nighttime. 06/21: Patient has been seen by Dr. Tellez for right renal pelvic stone with hematuria. Patient will need treatment for this stone electively and will need to be off blood thinners. Anticipate this will be done as an outpatient once patient is stabilized from episode of pancreatitis. Repeat blood work reveals WBC 6.6, hemoglobin 13, platelet count 158. Sodium 146, potassium 4.3, chloride 108, CO2 28.1, BUN 20 creatinine 1. Total bilirubin 1.6, liver function tests normal. Lipase 42. Diet will be advanced to low-fat. IV fluids transitioned to saline lock. He has been afebrile, heart rate 67, blood pressure 149/80, pulse ox 98% on room air. 06/22: Patient's abdominal pain has resolved. He denies any nausea or vomiting. He is tolerating diet. He has been up and ambulating without difficulty in his room. Patient has been afebrile, heart rate 59, blood pressure 150/87, pulse ox 96% on room air. Patient will be discharged home today in stable condition. Patient's daughter contacted by phone and updated. ASSESSMENT AND PLAN 1 abdominal pain: Mostly pancreatitis and gastritis 2 acute pancreatitis 3 severe gastritis and dyspepsia: Mostly from higher dose of Donepazil 4 gross hematuria 5 Severe dementia 6 chronic pain syndrome 7 CAD: Post PCI and stent placement 8 chronic atrial fibrillation 9 hyperlipidemia 10 recurrent depression 11 chronic neuropathy 12 recurrent gout DISCHARGE PLAN home Impression and plan of care have been directed as dictated by the signing physician. Amber Vivar nurse practitioner acting as scribe for signing physician. Patient Condition at Discharge: Good Plan - Discharge Summary New Discharge Prescriptions: Continue Acetaminophen [Tylenol Arthritis] 1,300 mg PO DAILY@0700 Metoprolol Tartrate 25 mg PO BID@0700,1900 Baclofen [Lioresal] 10 mg PO BID@0700,1900 Apixaban [Eliquis] 5 mg PO BID@0700,1900 allopurinoL [Zyloprim] 300 mg PO DAILY@0500 Nitroglycerin Sl Tabs [Nitrostat] 0.4 mg SUBLINGUAL Q5M PRN #25 tab PRN Reason: Chest Pain Atorvastatin [Lipitor] 40 mg PO DAILY@0700 Sodium Bicarbonate Tab 650 mg PO BID@0700,1900 Clopidogrel [Plavix] 75 mg PO DAILY@0700 Gabapentin [Neurontin] 100 mg PO DAILY@0700 Buprenorphine [Buprenorphine 5 MCG/HR] 1 patch TRANSDERM HINDS Losartan Potassium [Cozaar] 100 mg PO DAILY@0500 Cefuroxime [Ceftin] 250 mg PO BID@0700,1900 Tamsulosin HCl [Flomax] 0.4 mg PO DAILY@0700 Memantine HCl 10 mg PO DAILY@1900 L.acidoph,Paracasei, B.lactis [Probiotic] 1 cap PO DAILY@0500 DULoxetine HCL [Cymbalta] 60 mg PO DAILY@1900 Donepezil HCl [Aricept] 10 mg PO BID@0700,1900 DULoxetine HCL [Cymbalta] 30 mg PO DAILY@0700 hydrALAZINE HCL [Apresoline] 25 mg PO BID@0700,190 Gabapentin [Neurontin] 200 mg PO DAILY@1900 Discharge Medication List Acetaminophen [Tylenol Arthritis] 1,300 mg PO DAILY@0700 02/21/18 [History] Apixaban [Eliquis] 5 mg PO BID@0700,19002/21/18 [History] Baclofen [Lioresal] 10 mg PO BID@0700,19002/21/18 [History] Metoprolol Tartrate 25 mg PO BID@0700,19002/21/18 [History] allopurinoL [Zyloprim] 300 mg PO DAILY@05002/21/18 [History] Nitroglycerin Sl Tabs [Nitrostat] 0.4 mg SUBLINGUAL Q5M PRN #25 tab 04/05/18 [Rx] Atorvastatin [Lipitor] 40 mg PO DAILY@0700 07/08/19 [History] Clopidogrel [Plavix] 75 mg PO DAILY@0700 07/08/19 [History] Sodium Bicarbonate Tab 650 mg PO BID@0700,1900 07/08/19 [History] Gabapentin [Neurontin] 100 mg PO DAILY@0700 07/24/19 [History] Buprenorphine [Buprenorphine 5 MCG/HR] 1 patch TRANSDERM HINDS 08/12/19 [History] Losartan Potassium [Cozaar] 100 mg PO DAILY@0500 09/15/19 [History] Cefuroxime [Ceftin] 250 mg PO BID@0700,1900 06/20/20 [History] DULoxetine HCL [Cymbalta] 30 mg PO DAILY@0700 06/20/20 [History] DULoxetine HCL [Cymbalta] 60 mg PO DAILY@19006/20/20 [History] Donepezil HCl [Aricept] 10 mg PO BID@0700,19006/20/20 [History] Gabapentin [Neurontin] 200 mg PO DAILY@1900 06/20/20 [History] L.acidoph,Paracasei, B.lactis [Probiotic] 1 cap PO DAILY@0500 06/20/20 [History] Memantine HCl 10 mg PO DAILY@1900 06/20/20 [History] Tamsulosin HCl [Flomax] 0.4 mg PO DAILY@0700 06/20/20 [History] hydrALAZINE HCL [Apresoline] 25 mg PO BID@0700,1900 06/20/20 [History] Follow up Appointment(s)/Referral(s): Joe Sanders MD [Primary Care Provider] - 06/29/20 10:15 am (with nurse practitioner, Monique Gorman) Dl Tellez MD [STAFF PHYSICIAN] - 06/28/20 9:20 am () Patient Instructions/Handouts: *Surgery [facility] - (Urol) Extracorporeal Shockwave Lithotripsy (ESWL) Post-Op Instr, Gastritis (ED), Pancreatitis (ED), Neck Pain (GEN), Lithotripsy (GEN) Discharge Disposition: HOME SELF-CARE
== END 2020-06-22 09:39 | disposition home or self-care (01) | DRG 391 ==
LOC: EC 10:52 → 6NMEDSUR 12:58
PROVIDERS: ADMIT Internal Medicine Geriatric Medicine; ATTEND Internal Medicine Geriatric Medicine
DX: K29.70 Gastritis, unspecified, without bleeding (principal); K85.90 Acute pancreatitis without necrosis or infection, unspecified; F33.9 Major depressive disorder, recurrent, unspecified; I48.20 Chronic atrial fibrillation, unspecified; F03.90 Unspecified dementia, unspecified severity, without behavioral disturbance, psychotic disturbance, mood disturbance, and anxiety; E78.5 Hyperlipidemia, unspecified; F40.240 Claustrophobia; G62.9 Polyneuropathy, unspecified; G89.4 Chronic pain syndrome; I10 Essential (primary) hypertension; I25.10 Atherosclerotic heart disease of native coronary artery without angina pectoris; M10.9 Gout, unspecified; N20.0 Calculus of kidney; N40.0 Benign prostatic hyperplasia without lower urinary tract symptoms; R31.0 Gross hematuria; G43.909 Migraine, unspecified, not intractable, without status migrainosus; M19.90 Unspecified osteoarthritis, unspecified site; M54.2 Cervicalgia; M54.9 Dorsalgia, unspecified; N28.1 Cyst of kidney, acquired; T44.1X5A Adverse effect of other parasympathomimetics [cholinergics], initial encounter; Z79.01 Long term (current) use of anticoagulants; Z79.02 Long term (current) use of antithrombotics/antiplatelets; Z79.899 Other long term (current) drug therapy; Z86.73 Personal history of transient ischemic attack (TIA), and cerebral infarction without residual deficits; Z87.891 Personal history of nicotine dependence; Z95.5 Presence of coronary angioplasty implant and graft; Z90.49 Acquired absence of other specified parts of digestive tract; Z87.19 Personal history of other diseases of the digestive system; Z98.1 Arthrodesis status; Z98.890 Other specified postprocedural states; Z86.79 Personal history of other diseases of the circulatory system; Z80.3 Family history of malignant neoplasm of breast; Z80.9 Family history of malignant neoplasm, unspecified
CPT/HCPCS: 36415; 74176; 80053; 81001; 82150; 83690; 85025; 85610; 85730; 87086; 96360; 99284

== ENCOUNTER → 2020-07-12 | Outpatient (CLI) | payer MEDICARE ==
--- NOTE | 2020-07-12 10:50 | XR ---
EXAMINATION TYPE: XR KUB DATE OF EXAM: 07/12/2020 HISTORY: Pain Comparison: None.Single KUB is submitted for interpretation. Findings: Right renal calculi: A cluster of 8-10 calculi noted overlying the lower pole right kidney measuring up to 6 mm in greatest dimension. Right ureteral calculi: None Visualized. Left renal calculi: Left renal calculi are difficult to exclude given overlying bowel content. Left ureteral calculi: None Visualized. Pelvic calcifications: None Visualized. Bowel gas pattern is unremarkable. No free air. No mass effects. IMPRESSION: 1. Cluster of calculi lower pole right kidney.
== END | disposition home or self-care (01) ==
LOC: RADXRMAIN 10:32
PROVIDERS: ATTEND Urology
DX: N20.0 Calculus of kidney (principal)
CPT/HCPCS: 74018